=== PATIENT | male | born 1980 | race Caucasian/White ===

== ENCOUNTER 2018-07-30 12:43 | Inpatient (IN) | payer OTHER ==
[2018-07-30 13:34] VITALS: BMI 24.4
--- NOTE | 2018-07-30 14:59 | HP ---
COWS - Scale Sweatin= Chills/Flushing Restless Observation: 1= Difficult to Sit Still Bone or Joint Aches: 0= None Runny Nose/ Eye Tearin= None GI Upset > 30mins: 0= None Tremor Observation: 4= Gross Tremor/Twitching Yawning Observation: 0= None Anxiety or Irritability: 1=Feels Anxious/Irritable Goose Flesh Skin: 3=Piloerection CIWA Score - CIWA Score Nausea/Vomitin-Mild Nausea/No Vomiting Muscle Tremors: 1-None Visible, but [place] Admission ROS BHS - HPI Chief Complaint: pt here requesting detox from etoh use , reports 1 pint/day& 6 beers/day , reports tremors if not drinking, gets agitated and upset , use x 3 yrs , denies seizures, + blackouts most recently 3 mo ago , denies falls , latest use today 2 a.m. prior detox 6 mo ago . heroin use : 2-3 bags ivdu in [place] , needles from exchange , denies sharing , + re-using cocaine : 1/2 bag daily ivdu in [facility] > 1 yr , 80 mg q d benzo : xanax 1-2 /week not regular use utox + cheryle, fen , + opi, + oxy , + bzo, + mtd , forest 0.000 tobacco : 1/2 ppd requesting nrt w/ gum pmhx :hep C dx 2 years ago , no tx RF = ivdu pshx : denies psych meds : ZOloft , buspar, gabapentin did not bring meds , reports latest taken yesterday Allergies/Adverse Reactions: Allergies Allergy/AdvReac Type Severity Reaction Status Date / Time No Known Allergies Allergy Verified 07/30/18 14:06 - Ebola screening Have you traveled outside of the country in the last 21 days: No Have you had contact with anyone from an Ebola affected area: No Have you been sick,other than usual withdrawal symptoms: No Do you have a fever: No - Review of Systems Constitutional: See HPI, Chills, Night Sweats EENT: reports: See HPI Respiratory: reports: See HPI Cardiac: reports: See HPI GI: reports: Nausea : reports: No Symptoms Reported Musculoskeletal: reports: See HPI Integumentary: reports: See HPI, Other (tristian UE rash x many years ( 10)) Neuro: reports: See HPI, Unsteady Gait, Other (drowsy) Endocrine: reports: No Symptoms Reported Hematology: reports: No Symptoms Reported Psychiatric: reports: No Sypmtoms Reported, Judgement Intact, Orientated x3, other (bipolar d/o, depression, ptsd) Other Systems: Reviewed and Negative Patient History - Patient Medical History Hx Anemia: No Hx Asthma: No Hx Chronic Obstructive Pulmonary Disease (COPD): No Hx Cancer: No Hx Cardiac Disorders: No Hx Congestive Heart Failure: No Hx Hypertension: No Hx Hypercholesterolemia: No Hx Pacemaker: No HX Cerebrovascular Accident: No Hx Seizures: No Hx Dementia: No Hx Diabetes: No Hx Gastrointestinal Disorders: No Hx Liver Disease: Yes (Hep C) Hx Genitourinary Disorders: No Hx Sexually Transmitted Disorders: No Hx Renal Disease (ESRD): No Hx Thyroid Disease: No Hx Human Immunodeficiency Virus (HIV): No (Negative 2016) Hx Hepatitis C: Yes (Not on medication) Hx Depression: Yes Hx Suicide Attempt: Yes (hanged self with a shoelace in 2001) Hx Bipolar Disorder: Yes Hx Schizophrenia: No - Patient Surgical History Past Surgical History: No Hx Neurologic Surgery: No Hx Cataract Extraction: No Hx Cardiac Surgery: No Hx Lung Surgery: No Hx Breast Surgery: No Hx Breast Biopsy: No Hx Abdominal Surgery: No Hx Appendectomy: No Hx Cholecystectomy: No Hx Genitourinary Surgery: No Hx Section: No Hx Orthopedic Surgery: No Anesthesia Reaction: No - PPD History Previous Implant?: Yes Documented Results: Negative w/proof Implanted On Prior R Admission?: Yes Date: 01/23/18 Results: 0 mm - Smoking Cessation Smoking history: Current every day smoker Have you smoked in the past 12 months: Yes Aproximately how many cigarettes per day: 20 Cigars Per Day: 0 Hx Chewing Tobacco Use: No Initiated information on smoking cessation: No - Substances Abused Cocaine Route: Injection Frequency: Daily Amount used: $100-150 Age of first use: 17 Date of Last Use: 07/29/18 Heroin Route: Injection Frequency: Daily Amount used: 3-4 bags Age of first use: 20 Date of Last Use: 07/29/18 Alcohol-vodka/beer Route: Oral Frequency: Daily Amount used: 1 pt./3-6 pks. Age of first use: 19 Date of Last Use: 07/29/18 Family Disease History - Family Disease History Family History: Denies Admission Physical Exam [facility] - Vital Signs Vital Signs: Vital Signs - 24 hr 07/30/18 13:32 Temperature 97.5 F L Pulse Rate 67 Respiratory 18 Rate Blood Pressure 119/69 - Physical General Appearance: Yes: Within Normal Limits, Nourished, Appropriately Dressed , Moderate Distress HEENTM: Yes: Within Normal Limits, EOMI, Hearing grossly Normal, Normocephalic, Normal Voice, SHANNAN (pupils small for light), Pharynx Normal, Tm's normal Respiratory: Yes: Within Normal Limits, Chest Non-Tender, Lungs Clear, Normal Breath Sounds, No Respiratory Distress, No Accessory Muscle Use Neck: Yes: Within Normal Limits, No masses,lesions,Nodules, Trachea in good position Cardiology: Yes: Within Normal Limits, Regular Rhythm, Regular Rate, Systolic Murmur Abdominal: Yes: Within Normal Limits, Normal Bowel Sounds, Non Tender, Flat, Soft Genitourinary: Yes: Within Normal Limits Back: Yes: Within Normal Limits, Normal Inspection Musculoskeletal: Yes: Within Normal Limits, full range of Motion, Gait Steady, Pelvis Stable Extremities: Yes: Within Normal Limits, Normal Capillary Refill, Normal Inspection, Normal Range of Motion, Non-Tender Neurological: Yes: Within Normal Limits, Alert, Motor Strength 5/5, Normal Mood/ Affect, Normal Response, Other (drowsy, falls asleep frequently during interview , easily awakened) Integumentary: Yes: Erythema, Rash Cleared for Admission [facility] - Detox or Rehab Detox Regimen/Protocol: Librium [facility] Breath Alcohol Content Breath Alcohol Content: 0 Urine Drug Screen - Results Drug Screen Negative: No Urine Drug Screen Results: CHERYLE-Cocaine, OPI-Opiates, BAR-Barbiturates, BZO- Benzodiazepines, MTD-Methadone, OXY-Oxycodone, FEN-Fentanyl
[2018-07-30] MEDS ORDERED: IBUPROFEN 400 MG TABLET (FP) PO PRN (15:08)
[2018-07-30] MEDS ORDERED: ACETAMINOPHEN 325 MG TABLET (FP) PO PRN (15:08)
[2018-07-30] MEDS ORDERED: MAGNESIUM CITRATE 300 ML BOTTLE PO PRN (15:08)
[2018-07-30] MEDS ORDERED: MAG HYDROX/AL HYDROX/SIMETH 30 ML UNIT-DOSE CUP PO PRN (15:08)
[2018-07-30] MEDS ORDERED: MAGNESIUM HYDROX 2400MG/30ML ORAL SUSPENSION 30 ML CUP PO PRN (15:08)
[2018-07-30] MEDS ORDERED: COLLOIDAL OATMEAL 1 BAR EACH TP PRN (15:12)
[2018-07-30] MEDS: chlordiazePOXIDE HCL 25 MG CAPSULE PO SCH ×2 (17:34→22:14)
[2018-07-30] MEDS: NICOTINE POLACRILEX 2 MG GUM BUC PRN (17:36)
[2018-07-30] MEDS: VITAMINS A AND D TOPICAL OINTMENT 60 GM TUBE TP SCH ×2 (18:32→23:25)
[2018-07-30] MEDS ORDERED: MELATONIN 5 MG TABLETS PO PRN (22:00)
[2018-07-30] MEDS: BACITRACIN 0.9 GM PACKET TP SCH (22:13)
[2018-07-30] MEDS: THIAMINE HCL 100 MG TABLET (FP) PO SCH (22:13)
[2018-07-31 02:54] LABS: URINE APPEARANCE TURBID; URINE BILIRUBIN NEGATIVE (<2.0 mg/dL); URINE COLOR YELLOW; URINE GLUCOSE (UA) NEGATIVE (NEGATIVE); URINE KETONE NEGATIVE (NEGATIVE); URINE LEUK ESTERASE TRACE (NEGATIVE); URINE NITRITE NEGATIVE (NEGATIVE); URINE PROTEIN NEGATIVE (NEGATIVE); URINE UROBILINOGEN 4.0 E.U/dl mg/dL (0.2-1.0)
[2018-07-31 03:13] LABS: CALCIUM OXALATE CRYSTALS FEW /hpf (NONE SEEN); URINE BACTERIA MODERATE /hpf (NONE SEEN); URINE MUCUS RARE
[2018-07-31] MEDS: METHADONE HCL 40 MG DISPERSABLE TABLET PO SCH (05:49)
[2018-07-31] MEDS: chlordiazePOXIDE HCL 25 MG CAPSULE PO SCH ×4 (05:49→22:19)
[2018-07-31] MEDS: BACITRACIN 0.9 GM PACKET TP SCH ×3 (05:50→22:19)
[2018-07-31] MEDS: VITAMINS A AND D TOPICAL OINTMENT 60 GM TUBE TP SCH ×3 (05:50→17:54)
[2018-07-31] MEDS ORDERED: METHADONE HCL 10 MG TABLET PO SCH (06:00)
[2018-07-31] MEDS: NICOTINE POLACRILEX 2 MG GUM BUC PRN ×5 (06:48→22:23)
[2018-07-31 10:18] LABS: HEMATOCRIT 40.8 % (35.4-49); HEMOGLOBIN 13.1 GM/dL (11.7-16.9); MCH 26.3 pg (25.7-33.7); MCHC 32.2 g/dl (32.0-35.9); MEAN CELL VOLUME 81.7 fl (80-96); MEAN PLT VOLUME 8.5 fl (7.5-11.1); PLATELET COUNT 207 K/MM3 (134-434); RDW 16.3 % (11.9-15.9); WHITE BLOOD COUNT 4.5 K/mm3 (4.0-10.0)
[2018-07-31] MEDS: PRENATAL VITAMINS W/ FOLIC ACID TABLET (FP) PO SCH (10:19)
--- NOTE | 2018-07-31 10:42 | PN ---
S CIWA - CIWA Score Nausea/Vomitin-No Nausea/No Vomiting Muscle Tremors: 4-Moderate,w/Arms Extend Anxiety: 4-Mod. Anxious/Guarded Agitation: 4-Moderately Restless Paroxysmal Sweats: 1-Minimal Palms Moist Orientation: 0-Oriented Tacttile Disturbances: 3-Moderate Itch/Numb/Burn Auditory Disturbances: 0-None Visual Disturbances: 0-None Headache: 0-None Present CIWA-Ar Total Score: 16 BHS Progress Note (SOAP) Subjective: ANXIETY,SWEATS,ITCHY SKIN-CHRONIC SKIN RASH. Objective: 07/31/18 10:38 Vital Signs 07/31/18 07/31/18 07/31/18 03:30 06:54 09:21 Temperature 97.5 F L 96.4 F L Pulse Rate 60 68 Respiratory 18 18 16 Rate Blood Pressure 105/62 98/67 Laboratory Tests 07/30/18 07/31/18 16:53 07:00 WBC 4.5 RBC 5.00 Hgb 13.1 Hct 40.8 MCV 81.7 MCH 26.3 MCHC 32.2 RDW 16.3 H Plt Count 207 MPV 8.5 D Urine Color Yellow Urine Appearance Turbid Urine pH 5.0 Ur Specific [place] 1.021 Urine Protein Negative Urine Glucose (UA) Negative Urine Ketones Negative Urine Blood Negative Urine Nitrite Negative Urine Bilirubin Negative Urine Urobilinogen 4.0 e.u/dl Ur Leukocyte Esterase Trace Urine WBC (Auto) 21 Urine RBC (Auto) None Calcium Oxalate Crystal Few Urine Bacteria Moderate Urine Mucus Rare UA NOTED Assessment: 07/31/18 10:38 WITHDRAWAL SX Plan: CONTINUE DETOX BENADRYL 25 MG PO TID FOR ITCHY SKIN DUE TO RASH. AVEENO SOAP DIRECTED.
[2018-07-31 11:09] LABS: ALBUMIN 3.4 g/dl (3.4-5.0); ALK PHOS 143 U/L (45-117); ANION GAP 6 MMOL/L (8-16); BILIRUBIN,TOTAL 0.4 mg/dL (0.2-1); BLOOD UREA NITROGEN 10 mg/dL (7-18); CALCIUM 8.9 mg/dL (8.5-10.1); CHLORIDE 104 mmol/L (98-107); CO2 32 mmol/L (21-32); CREATININE 0.9 mg/dL (0.55-1.3); GLUCOSE,RANDOM 72 mg/dL (74-106); POTASSIUM 4.5 mmol/L (3.5-5.1); SGOT/AST 48 U/L (15-37); SGPT/ALT 38 U/L (13-61); SODIUM 142 mmol/L (136-145); TOT PROT 8.1 g/dl (6.4-8.2)
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
--- NOTE | 2018-07-31 12:59 | EKG ---
Test Reason : Blood Pressure : / mmHG Vent. Rate : 054 BPM Atrial Rate : 054 BPM P-R Int : 150 ms QRS Dur : 096 ms QT Int : 462 ms P-R-T Axes : 020 048 034 degrees QTc Int : 438 ms POOR DATA QUALITY, INTERPRETATION MAY BE ADVERSELY AFFECTED SINUS BRADYCARDIA WITH OCCASIONAL PREMATURE VENTRICULAR COMPLEXES MINIMAL VOLTAGE CRITERIA FOR LVH, MAY BE NORMAL VARIANT EARLY REPOLARIZATION BORDERLINE ECG WHEN COMPARED WITH ECG OF 21-JAN-2018 21:15, PREMATURE VENTRICULAR COMPLEXES ARE NOW PRESENT Confirmed by ZAIDA COOPER, LD ([id number]) on 07/31/2018 12:58:51 PM Referred By: Confirmed By:LD CERDA MD
[2018-07-31] MEDS: TRIAMCINOLONE ACET 0.025% OINTMENT 15 GM TUBE TP SCH ×3 (13:02→22:19)
[2018-07-31] MEDS: diphenhydrAMINE HCL 25 MG CAPSULE (FP) PO SCH ×2 (13:02→22:19)
[2018-07-31] MEDS: busPIRone HCL 10 MG TABLET (FP) PO SCH ×2 (13:02→22:19)
[2018-07-31] MEDS: SERTRALINE HCL 50 MG TABLET (FP) PO SCH (13:03)
[2018-07-31] MEDS: GABAPENTIN 300 MG CAPSULE (FP) PO SCH ×2 (13:03→22:19)
[2018-07-31] MEDS: THIAMINE HCL 100 MG TABLET (FP) PO SCH (22:20)
[2018-07-31] MEDS: ZOLPIDEM TARTRATE 5 MG TABLET PO PRN (22:22)
[2018-08-01] MEDS: VITAMINS A AND D TOPICAL OINTMENT 60 GM TUBE TP SCH ×4 (00:30→18:09)
[2018-08-01] MEDS: chlordiazePOXIDE HCL 25 MG CAPSULE PO SCH ×2 (05:37→10:08)
[2018-08-01] MEDS: diphenhydrAMINE HCL 25 MG CAPSULE (FP) PO SCH ×3 (05:37→22:15)
[2018-08-01] MEDS: GABAPENTIN 300 MG CAPSULE (FP) PO SCH ×3 (05:37→22:15)
[2018-08-01] MEDS: NICOTINE POLACRILEX 2 MG GUM BUC PRN ×4 (05:37→17:57)
[2018-08-01] MEDS: busPIRone HCL 10 MG TABLET (FP) PO SCH ×3 (05:37→22:15)
[2018-08-01] MEDS: METHADONE HCL 40 MG DISPERSABLE TABLET PO SCH (05:37)
[2018-08-01] MEDS: BACITRACIN 0.9 GM PACKET TP SCH ×3 (06:26→22:14)
[2018-08-01] MEDS: TRIAMCINOLONE ACET 0.025% OINTMENT 15 GM TUBE TP SCH ×4 (10:07→22:14)
[2018-08-01] MEDS: SERTRALINE HCL 50 MG TABLET (FP) PO SCH (10:08)
[2018-08-01] MEDS: PRENATAL VITAMINS W/ FOLIC ACID TABLET (FP) PO SCH (10:09)
--- NOTE | 2018-08-01 10:17 | PN ---
[facility] CIWA - CIWA Score Nausea/Vomitin-No Nausea/No Vomiting Muscle Tremors: 3 Anxiety: 4-Mod. Anxious/Guarded Agitation: 3 Paroxysmal Sweats: 1-Minimal Palms Moist Orientation: 0-Oriented Tacttile Disturbances: 0-None Auditory Disturbances: 0-None Visual Disturbances: 0-None Headache: 0-None Present CIWA-Ar Total Score: 11 BHS Progress Note (SOAP) Subjective: ANXIETY,SWEATS,MUSCLE ACHES,FATIGUE. Objective: 08/01/18 10:16 Vital Signs 08/01/18 08/01/18 08/01/18 03:30 06:14 09:47 Temperature 97.6 F 97.6 F Pulse Rate 62 68 Respiratory 18 18 20 Rate Blood Pressure 102/54 120/70 Laboratory Tests 07/30/18 07/31/18 07/31/18 16:53 07:00 07:00 WBC 4.5 RBC 5.00 Hgb 13.1 Hct 40.8 MCV 81.7 MCH 26.3 MCHC 32.2 RDW 16.3 H Plt Count 207 MPV 8.5 D Sodium Potassium Chloride Carbon Dioxide Anion Gap BUN Creatinine Creat Clearance w eGFR Random Glucose Calcium Total Bilirubin AST ALT Alkaline Phosphatase Total Protein Albumin Urine Color Yellow Urine Appearance Turbid Urine pH 5.0 Ur Specific [place] 1.021 Urine Protein Negative Urine Glucose (UA) Negative Urine Ketones Negative Urine Blood Negative Urine Nitrite Negative Urine Bilirubin Negative Urine Urobilinogen 4.0 e.u/dl Ur Leukocyte Esterase Trace Urine WBC (Auto) 21 Urine RBC (Auto) None Calcium Oxalate Crystal Few Urine Bacteria Moderate Urine Mucus Rare HIV 1&2 Antibody Screen Negative HIV P24 Antigen Negative 07/31/18 07:00 WBC RBC Hgb Hct MCV MCH MCHC RDW Plt Count MPV Sodium 142 Potassium 4.5 Chloride 104 Carbon Dioxide 32 Anion Gap 6 L BUN 10 Creatinine 0.9 Creat Clearance w eGFR > 60 Random Glucose 72 L Calcium 8.9 Total Bilirubin 0.4 AST 48 H ALT 38 Alkaline Phosphatase 143 H Total Protein 8.1 Albumin 3.4 Urine Color Urine Appearance Urine pH Ur Specific [place] Urine Protein Urine Glucose (UA) Urine Ketones Urine Blood Urine Nitrite Urine Bilirubin Urine Urobilinogen Ur Leukocyte Esterase Urine WBC (Auto) Urine RBC (Auto) Calcium Oxalate Crystal Urine Bacteria Urine Mucus HIV 1&2 Antibody Screen HIV P24 Antigen Assessment: 08/01/18 10:16 WITHDRAWAL SX Plan: CONTINUE DETOX MOTRIN PRN
[2018-08-01] MEDS: chlordiazePOXIDE 5 MG CAPSULE PO SCH ×2 (17:55→22:15)
[2018-08-01] MEDS: hydrOXYzine PAMOATE 25 MG CAPSULE (FP) PO PRN (17:56)
[2018-08-01] MEDS: THIAMINE HCL 100 MG TABLET (FP) PO SCH (22:15)
[2018-08-01] MEDS: ZOLPIDEM TARTRATE 5 MG TABLET PO PRN (22:17)
[2018-08-02] MEDS: VITAMINS A AND D TOPICAL OINTMENT 60 GM TUBE TP SCH ×3 (00:49→13:29)
[2018-08-02] MEDS: METHADONE HCL 40 MG DISPERSABLE TABLET PO SCH (05:40)
[2018-08-02] MEDS: busPIRone HCL 10 MG TABLET (FP) PO SCH ×2 (05:41→13:28)
[2018-08-02] MEDS: diphenhydrAMINE HCL 25 MG CAPSULE (FP) PO SCH ×2 (05:41→13:29)
[2018-08-02] MEDS: GABAPENTIN 300 MG CAPSULE (FP) PO SCH ×2 (05:41→13:28)
[2018-08-02] MEDS: chlordiazePOXIDE 5 MG CAPSULE PO SCH ×2 (05:41→10:40)
[2018-08-02] MEDS: BACITRACIN 0.9 GM PACKET TP SCH ×2 (05:44→13:28)
[2018-08-02] MEDS: NICOTINE POLACRILEX 2 MG GUM BUC PRN ×2 (06:23→15:38)
[2018-08-02] MEDS: TRIAMCINOLONE ACET 0.025% OINTMENT 15 GM TUBE TP SCH ×2 (10:40→13:30)
[2018-08-02] MEDS: SERTRALINE HCL 50 MG TABLET (FP) PO SCH (10:40)
[2018-08-02] MEDS: PRENATAL VITAMINS W/ FOLIC ACID TABLET (FP) PO SCH (10:41)
[2018-08-02] MEDS: hydrOXYzine PAMOATE 25 MG CAPSULE (FP) PO PRN (13:28)
--- NOTE | 2018-08-02 14:07 | PN ---
BHS Progress Note (SOAP) Subjective: ANXIETY,MUSCLE ACHES,SWEATS. Objective: 08/02/18 14:07 Vital Signs 08/02/18 08/02/18 06:20 10:20 Temperature 98 F 97.7 F Pulse Rate 66 76 Respiratory 18 18 Rate Blood Pressure 99/60 97/59 L Assessment: 08/02/18 14:07 WITHDRAWAL SX Plan: CONTINUE DETOX
--- NOTE | 2018-08-02 15:59 | PN ---
S Progress Note Note: PT STATES SHE'S READY TO GO INTO REHAB TODAY. ALERT O X 3. MEDICALLY STABLE.
--- NOTE | 2018-08-02 16:01 | DS ---
[facility] Detox Discharge Summary Admission Date: 07/30/18 Discharge Date: 08/02/18 - History Present History: Alcohol Dependence, Cocaine Dependence Additional Comments: DETOX COMPLETED. ALERT O X 3. NAD. - Physical Exam Results Vital Signs: Vital Signs Temperature 97.7 F 08/02/18 14:19 Pulse Rate 88 08/02/18 14:19 Respiratory Rate 20 08/02/18 14:19 Blood Pressure 112/69 08/02/18 14:19 O2 Sat by Pulse Oximetry (%) Pertinent Admission Physical Exam Findings: WITHDRAWAL SX Laboratory Tests 07/30/18 07/31/18 07/31/18 16:53 07:00 07:00 WBC 4.5 RBC 5.00 Hgb 13.1 Hct 40.8 MCV 81.7 MCH 26.3 MCHC 32.2 RDW 16.3 H Plt Count 207 MPV 8.5 D Sodium Potassium Chloride Carbon Dioxide Anion Gap BUN Creatinine Creat Clearance w eGFR Random Glucose Calcium Total Bilirubin AST ALT Alkaline Phosphatase Total Protein Albumin Urine Color Yellow Urine Appearance Turbid Urine pH 5.0 Ur Specific [place] 1.021 Urine Protein Negative Urine Glucose (UA) Negative Urine Ketones Negative Urine Blood Negative Urine Nitrite Negative Urine Bilirubin Negative Urine Urobilinogen 4.0 e.u/dl Ur Leukocyte Esterase Trace Urine WBC (Auto) 21 Urine RBC (Auto) None Calcium Oxalate Crystal Few Urine Bacteria Moderate Urine Mucus Rare RPR Titer HIV 1&2 Antibody Screen Negative HIV P24 Antigen Negative 07/31/18 07/31/18 07:00 07:00 WBC RBC Hgb Hct MCV MCH MCHC RDW Plt Count MPV Sodium 142 Potassium 4.5 Chloride 104 Carbon Dioxide 32 Anion Gap 6 L BUN 10 Creatinine 0.9 Creat Clearance w eGFR > 60 Random Glucose 72 L Calcium 8.9 Total Bilirubin 0.4 AST 48 H ALT 38 Alkaline Phosphatase 143 H Total Protein 8.1 Albumin 3.4 Urine Color Urine Appearance Urine pH Ur Specific [place] Urine Protein Urine Glucose (UA) Urine Ketones Urine Blood Urine Nitrite Urine Bilirubin Urine Urobilinogen Ur Leukocyte Esterase Urine WBC (Auto) Urine RBC (Auto) Calcium Oxalate Crystal Urine Bacteria Urine Mucus RPR Titer Nonreactive HIV 1&2 Antibody Screen HIV P24 Antigen - Treatment Hospital Course: Detox Protocol Followed, Detoxed Safely, Responded well, Discharged Condition Good, Rehab Referral Accepted Patient has Accepted a Rehab Referral to: [facility] - Medication Discharge Medications: Ambulatory Orders Sertraline HCl [Zoloft -] 50 mg PO DAILY 01/19/16 Buspirone HCl [Buspar -] 10 mg PO TID 01/21/18 Diphenhydramine HCl [Benadryl Capsule -] 25 mg PO Q6H PRN #10 capsule 01/25/18 Gabapentin [Neurontin -] 300 mg PO TID #90 cap 01/25/18 Vitamin A & D Top Oint - 1 applic TP Q6HPO #1 tube 01/25/18 Bacitracin - [Bacitracin Topical Ointment -] 1 applic TP TID 07/30/18 Triamcinolone 0.5% Ointment [Kenalog] 0 gm TP BID 07/30/18 - Diagnosis (1) Alcohol dependence with uncomplicated withdrawal Current Visit: Yes Status: Acute (2) Cocaine dependence Current Visit: Yes Status: Acute (3) Hepatitis C Current Visit: Yes Status: Chronic Qualifiers: Viral hepatitis chronicity: chronic (4) Asthma Current Visit: Yes Status: Chronic Qualifiers: Asthma severity: mild persistent Asthma complication type: uncomplicated (5) Eczema Current Visit: Yes Status: Chronic Qualifiers: Eczema type: intrinsic Qualified Code(s): L20.84 - Intrinsic (allergic) eczema (6) Hep C w/o coma, chronic Current Visit: Yes Status: Chronic (7) History of seizure Current Visit: Yes Status: Suspected (8) Methadone maintenance therapy patient Current Visit: Yes Status: Chronic - AMA Did Patient Leave Against Medical Advice: No
[2018-08-02] MEDS ORDERED: chlordiazePOXIDE HCL 10 MG CAPSULE PO SCH (17:00)
[2018-08-02 17:39] VITALS: BP 111/56; PULSE 76; TEMP 98.1
== END 2018-08-02 18:33 | disposition other institution (70) | DRG 773 ==
LOC: YASAS 12:43 → Y3N 15:24
PROC: HZ2ZZZZ Detoxification Services for Substance Abuse Treatment (ICD-10-PCS; principal; 2018-07-30)
DX: F10.230 Alcohol dependence with withdrawal, uncomplicated (principal); F14.20 Cocaine dependence, uncomplicated; F11.20 Opioid dependence, uncomplicated; F19.24 Other psychoactive substance dependence with psychoactive substance-induced mood disorder; F31.9 Bipolar disorder, unspecified; F43.10 Post-traumatic stress disorder, unspecified; B18.2 Chronic viral hepatitis C; L20.84 Intrinsic (allergic) eczema; Z86.69 Personal history of other diseases of the nervous system and sense organs; Z91.5 Personal history of self-harm
CPT/HCPCS: 36415; 80053; 81003; 81015; 85027; 86593; 87389; 93005; 93010

== ENCOUNTER 2018-08-02 20:03 | Inpatient (IN) | payer OTHER ==
[2018-08-02] MEDS ORDERED: MAGNESIUM CITRATE 300 ML BOTTLE PO PRN (20:45)
[2018-08-02] MEDS ORDERED: guaiFENesin/D-METHORPHAN HB 10 ML UNIT-DOSE CUPS PO PRN (20:45)
[2018-08-02] MEDS ORDERED: MAGNESIUM HYDROX 2400MG/30ML ORAL SUSPENSION 30 ML CUP PO PRN (20:45)
[2018-08-02] MEDS ORDERED: MENTHOL/PHENOL 1 EACH UD MM PRN (20:45)
[2018-08-02] MEDS ORDERED: P-EPHED 60MG/TRIPROLIDI 2.5MG TABLET PO PRN (20:45)
[2018-08-02] MEDS ORDERED: ACETAMINOPHEN 325 MG TABLET (FP) PO PRN (20:45)
[2018-08-02] MEDS ORDERED: LOPERAMIDE HCL 2 MG CAPSULE PO PRN (20:45)
[2018-08-02] MEDS ORDERED: MAG HYDROX/AL HYDROX/SIMETH 30 ML UNIT-DOSE CUP PO PRN (20:45)
--- NOTE | 2018-08-02 20:52 | PN ---
CHANDAN Progress Note Note: Psychiatric nurse practitioner production pattern maker note: Chart reviewed. Patient transferred to rehab. Dr. Byrne note read and appreciated. Will continue medications that were prescribed in detox: Zoloft 50mg daily + Buspar 10mg TID.
--- NOTE | 2018-08-02 21:01 | HP ---
CHANDAN COOPER Rehab Assess/Revision - Admission History Ad[facility] Date of Admission to Rehab: 08/02/18 - Vital signs Vital Signs: Vital Signs Period Temp Pulse Resp BP Sys/Cordero Pulse Ox Last 24 Hr 97.9 F 80 20 118/71 - Findings Detox History & Physical reviewed: Yes Concur with findings: Yes Comments/Additional Findings: ADMIT TO REHAB
--- NOTE | 2018-08-02 21:02 | HP ---
CHANDAN COOPER Rehab Assess/Revision - Admission History Admitted to Rehab from: [facility] [place] - Vital signs Vital Signs: Vital Signs Period Temp Pulse Resp BP Sys/Cordero Pulse Ox Last 24 Hr 97.9 F 80 20 118/71 - Findings Detox History & Physical reviewed: Yes Concur with findings: Yes Comments/Additional Findings: ADMIT TO REHAB Inpatient Rehab Admission - Initial Determination Are CD services needed?: Yes Free of communicable disease: Yes Not in need of hospitalization: Yes - Rehab Admission Criteria Previous failed treatment: Yes Poor recovery environment: Yes Comorbidities: Yes Lacks judgement: Yes Patient is meeting Inpatient Rehab admission criteria:: Yes
[2018-08-02] MEDS: THIAMINE HCL 100 MG TABLET (FP) PO SCH (22:02)
[2018-08-02] MEDS: BACITRACIN 0.9 GM PACKET TP SCH (22:02)
[2018-08-02] MEDS: busPIRone HCL 10 MG TABLET (FP) PO SCH (22:04)
[2018-08-02] MEDS: GABAPENTIN 300 MG CAPSULE (FP) PO SCH (22:04)
[2018-08-02] MEDS: diphenhydrAMINE HCL 25 MG CAPSULE (FP) PO PRN (22:04)
[2018-08-02] MEDS: TRIAMCINOLONE ACET 0.5% OINT 15 GM TUBE TP SCH (22:05)
[2018-08-03] MEDS: VITAMINS A AND D TOPICAL OINTMENT 60 GM TUBE TP SCH ×4 (00:31→19:29)
[2018-08-03] MEDS: IBUPROFEN 400 MG TABLET (FP) PO PRN ×2 (06:06→22:06)
[2018-08-03] MEDS: busPIRone HCL 10 MG TABLET (FP) PO SCH ×3 (06:06→22:04)
[2018-08-03] MEDS: GABAPENTIN 300 MG CAPSULE (FP) PO SCH ×3 (06:06→22:04)
[2018-08-03] MEDS: BACITRACIN 0.9 GM PACKET TP SCH ×3 (06:06→22:04)
[2018-08-03] MEDS: hydrOXYzine PAMOATE 50 MG CAPSULE (FP) PO PRN ×3 (06:08→22:06)
[2018-08-03] MEDS: METHADONE HCL 40 MG DISPERSABLE TABLET PO SCH (06:09)
[2018-08-03] MEDS: TRIAMCINOLONE ACET 0.5% OINT 15 GM TUBE TP SCH ×2 (10:40→22:04)
[2018-08-03] MEDS: NICOTINE 14 MG/24 HOURS TOPICAL PATCH TD SCH (10:40)
[2018-08-03] MEDS: PRENATAL VITAMINS W/ FOLIC ACID TABLET (FP) PO SCH (10:40)
[2018-08-03] MEDS: SERTRALINE HCL 50 MG TABLET (FP) PO SCH (10:40)
[2018-08-03] MEDS: NICOTINE POLACRILEX 2 MG GUM BUC PRN ×3 (10:42→22:07)
[2018-08-03] MEDS: THIAMINE HCL 100 MG TABLET (FP) PO SCH (22:04)
[2018-08-04] MEDS: VITAMINS A AND D TOPICAL OINTMENT 60 GM TUBE TP SCH ×4 (00:14→17:53)
[2018-08-04] MEDS: METHADONE HCL 40 MG DISPERSABLE TABLET PO SCH (06:40)
[2018-08-04] MEDS: GABAPENTIN 300 MG CAPSULE (FP) PO SCH ×3 (06:41→22:15)
[2018-08-04] MEDS: busPIRone HCL 10 MG TABLET (FP) PO SCH ×3 (06:41→22:16)
[2018-08-04] MEDS: BACITRACIN 0.9 GM PACKET TP SCH ×3 (06:41→22:16)
[2018-08-04] MEDS: hydrOXYzine PAMOATE 50 MG CAPSULE (FP) PO PRN ×4 (06:43→22:19)
[2018-08-04] MEDS: NICOTINE POLACRILEX 2 MG GUM BUC PRN ×3 (06:44→22:19)
[2018-08-04] MEDS: PRENATAL VITAMINS W/ FOLIC ACID TABLET (FP) PO SCH (10:51)
[2018-08-04] MEDS: NICOTINE 14 MG/24 HOURS TOPICAL PATCH TD SCH (10:51)
[2018-08-04] MEDS: SERTRALINE HCL 50 MG TABLET (FP) PO SCH (10:51)
[2018-08-04] MEDS: IBUPROFEN 400 MG TABLET (FP) PO PRN (10:51)
[2018-08-04] MEDS: TRIAMCINOLONE ACET 0.5% OINT 15 GM TUBE TP SCH ×2 (11:02→22:17)
[2018-08-04] MEDS: THIAMINE HCL 100 MG TABLET (FP) PO SCH (22:16)
[2018-08-05] MEDS: VITAMINS A AND D TOPICAL OINTMENT 60 GM TUBE TP SCH ×4 (00:03→17:20)
[2018-08-05] MEDS: busPIRone HCL 10 MG TABLET (FP) PO SCH ×3 (06:16→21:55)
[2018-08-05] MEDS: GABAPENTIN 300 MG CAPSULE (FP) PO SCH ×3 (06:17→21:55)
[2018-08-05] MEDS: METHADONE HCL 40 MG DISPERSABLE TABLET PO SCH (06:17)
[2018-08-05] MEDS: hydrOXYzine PAMOATE 50 MG CAPSULE (FP) PO PRN ×3 (06:20→21:56)
[2018-08-05] MEDS: IBUPROFEN 400 MG TABLET (FP) PO PRN ×2 (06:20→14:40)
[2018-08-05] MEDS: BACITRACIN 0.9 GM PACKET TP SCH ×3 (06:21→21:55)
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
[2018-08-05] MEDS: NICOTINE 14 MG/24 HOURS TOPICAL PATCH TD SCH (11:46)
[2018-08-05] MEDS: PRENATAL VITAMINS W/ FOLIC ACID TABLET (FP) PO SCH (11:46)
[2018-08-05] MEDS: SERTRALINE HCL 50 MG TABLET (FP) PO SCH (11:46)
[2018-08-05] MEDS: NICOTINE POLACRILEX 2 MG GUM BUC PRN ×3 (11:47→21:57)
[2018-08-05] MEDS: diphenhydrAMINE HCL 25 MG CAPSULE (FP) PO PRN (11:48)
[2018-08-05] MEDS: TRIAMCINOLONE ACET 0.5% OINT 15 GM TUBE TP SCH ×2 (11:49→21:58)
[2018-08-05] MEDS: MELATONIN 5 MG TABLETS PO PRN (21:55)
[2018-08-05] MEDS: THIAMINE HCL 100 MG TABLET (FP) PO SCH (21:55)
[2018-08-05] MEDS: QUEtiapine FUMARATE 50 MG TABLET PO SCH (21:55)
[2018-08-06] MEDS: VITAMINS A AND D TOPICAL OINTMENT 60 GM TUBE TP SCH ×4 (01:09→17:17)
[2018-08-06] MEDS: busPIRone HCL 10 MG TABLET (FP) PO SCH ×3 (06:19→21:46)
[2018-08-06] MEDS: hydrOXYzine PAMOATE 50 MG CAPSULE (FP) PO PRN ×3 (06:19→17:16)
[2018-08-06] MEDS: METHADONE HCL 40 MG DISPERSABLE TABLET PO SCH (06:19)
[2018-08-06] MEDS: NICOTINE POLACRILEX 2 MG GUM BUC PRN ×3 (06:19→21:48)
[2018-08-06] MEDS: GABAPENTIN 300 MG CAPSULE (FP) PO SCH ×3 (06:19→21:46)
[2018-08-06] MEDS: BACITRACIN 0.9 GM PACKET TP SCH ×3 (06:42→21:47)
[2018-08-06] MEDS: NICOTINE 14 MG/24 HOURS TOPICAL PATCH TD SCH (11:01)
[2018-08-06] MEDS: PRENATAL VITAMINS W/ FOLIC ACID TABLET (FP) PO SCH (11:01)
[2018-08-06] MEDS: SERTRALINE HCL 50 MG TABLET (FP) PO SCH (11:01)
[2018-08-06] MEDS: TRIAMCINOLONE ACET 0.5% OINT 15 GM TUBE TP SCH ×2 (11:01→21:46)
[2018-08-06] MEDS: IBUPROFEN 400 MG TABLET (FP) PO PRN ×2 (11:02→17:16)
--- NOTE | 2018-08-06 11:56 | PN ---
BHS Progress Note Note: C/O SEVERE PAIN,REDNESS AND SWELLING TO RIGHT FOREARM FOR COUPLE DAYS. PT DENIES ANY TRUAMA TO AREA. RIGHT ARM: REDNESS AND SWELLING WITH PAIN TO TOUCH. IMPRESSION: CELLULITIS/ABSCESS RIGHT FOREARM PLAN: KEFLEX 500 MG PO Q6H X 7 DAYS
[2018-08-06] MEDS: CEPHALEXIN MONOHYDRATE 500 MG CAPSULE (UD) PO SCH ×2 (12:22→17:14)
[2018-08-06] MEDS: THIAMINE HCL 100 MG TABLET (FP) PO SCH (21:46)
[2018-08-06] MEDS: QUEtiapine FUMARATE 50 MG TABLET PO SCH (21:46)
[2018-08-06] MEDS: diphenhydrAMINE HCL 25 MG CAPSULE (FP) PO PRN (21:47)
[2018-08-07] MEDS: CEPHALEXIN MONOHYDRATE 500 MG CAPSULE (UD) PO SCH ×5 (01:00→23:22)
[2018-08-07] MEDS: VITAMINS A AND D TOPICAL OINTMENT 60 GM TUBE TP SCH ×4 (02:39→17:38)
[2018-08-07] MEDS: NICOTINE POLACRILEX 2 MG GUM BUC PRN ×4 (06:38→21:40)
[2018-08-07] MEDS: hydrOXYzine PAMOATE 50 MG CAPSULE (FP) PO PRN ×2 (06:38→11:14)
[2018-08-07] MEDS: busPIRone HCL 10 MG TABLET (FP) PO SCH ×3 (06:38→21:39)
[2018-08-07] MEDS: METHADONE HCL 40 MG DISPERSABLE TABLET PO SCH (06:38)
[2018-08-07] MEDS: BACITRACIN 0.9 GM PACKET TP SCH ×3 (06:41→21:39)
[2018-08-07] MEDS: GABAPENTIN 300 MG CAPSULE (FP) PO SCH ×3 (06:41→21:39)
[2018-08-07] MEDS: PRENATAL VITAMINS W/ FOLIC ACID TABLET (FP) PO SCH (11:11)
[2018-08-07] MEDS: NICOTINE 14 MG/24 HOURS TOPICAL PATCH TD SCH (11:11)
[2018-08-07] MEDS: SERTRALINE HCL 50 MG TABLET (FP) PO SCH (11:11)
[2018-08-07] MEDS: TRIAMCINOLONE ACET 0.5% OINT 15 GM TUBE TP SCH ×2 (11:12→21:39)
[2018-08-07] MEDS: IBUPROFEN 400 MG TABLET (FP) PO PRN (14:15)
[2018-08-07] MEDS: QUEtiapine FUMARATE 50 MG TABLET PO SCH (21:39)
[2018-08-07] MEDS: THIAMINE HCL 100 MG TABLET (FP) PO SCH (21:39)
[2018-08-08] MEDS: CEPHALEXIN MONOHYDRATE 500 MG CAPSULE (UD) PO SCH ×4 (06:05→23:30)
[2018-08-08] MEDS: GABAPENTIN 300 MG CAPSULE (FP) PO SCH ×3 (06:05→21:49)
[2018-08-08] MEDS: busPIRone HCL 10 MG TABLET (FP) PO SCH ×3 (06:06→21:49)
[2018-08-08] MEDS: METHADONE HCL 40 MG DISPERSABLE TABLET PO SCH (06:06)
[2018-08-08] MEDS: NICOTINE POLACRILEX 2 MG GUM BUC PRN ×4 (06:08→21:51)
[2018-08-08] MEDS: hydrOXYzine PAMOATE 50 MG CAPSULE (FP) PO PRN ×3 (06:08→21:50)
[2018-08-08] MEDS: BACITRACIN 0.9 GM PACKET TP SCH ×3 (06:26→22:07)
[2018-08-08] MEDS: VITAMINS A AND D TOPICAL OINTMENT 60 GM TUBE TP SCH ×5 (06:26→23:32)
[2018-08-08] MEDS: SERTRALINE HCL 50 MG TABLET (FP) PO SCH (10:43)
[2018-08-08] MEDS: NICOTINE 14 MG/24 HOURS TOPICAL PATCH TD SCH (10:44)
[2018-08-08] MEDS: PRENATAL VITAMINS W/ FOLIC ACID TABLET (FP) PO SCH (10:44)
[2018-08-08] MEDS: TRIAMCINOLONE ACET 0.5% OINT 15 GM TUBE TP SCH ×2 (11:09→22:07)
[2018-08-08] MEDS: QUEtiapine FUMARATE 50 MG TABLET PO SCH (21:50)
[2018-08-08] MEDS: THIAMINE HCL 100 MG TABLET (FP) PO SCH (21:51)
[2018-08-09] MEDS: BACITRACIN 0.9 GM PACKET TP SCH ×3 (06:30→21:41)
[2018-08-09] MEDS: busPIRone HCL 10 MG TABLET (FP) PO SCH ×3 (06:30→21:41)
[2018-08-09] MEDS: CEPHALEXIN MONOHYDRATE 500 MG CAPSULE (UD) PO SCH ×3 (06:30→17:20)
[2018-08-09] MEDS: VITAMINS A AND D TOPICAL OINTMENT 60 GM TUBE TP SCH ×3 (06:32→17:20)
[2018-08-09] MEDS: hydrOXYzine PAMOATE 50 MG CAPSULE (FP) PO PRN ×2 (06:32→10:37)
[2018-08-09] MEDS: GABAPENTIN 300 MG CAPSULE (FP) PO SCH ×3 (06:32→21:41)
[2018-08-09] MEDS: METHADONE HCL 40 MG DISPERSABLE TABLET PO SCH (06:32)
[2018-08-09] MEDS: NICOTINE POLACRILEX 2 MG GUM BUC PRN ×3 (06:34→21:41)
[2018-08-09] MEDS: NICOTINE 14 MG/24 HOURS TOPICAL PATCH TD SCH (10:34)
[2018-08-09] MEDS: SERTRALINE HCL 50 MG TABLET (FP) PO SCH (10:35)
[2018-08-09] MEDS: IBUPROFEN 400 MG TABLET (FP) PO PRN (10:37)
[2018-08-09] MEDS: TRIAMCINOLONE ACET 0.5% OINT 15 GM TUBE TP SCH ×2 (11:55→21:41)
[2018-08-09] MEDS: PRENATAL VITAMINS W/ FOLIC ACID TABLET (FP) PO SCH (11:55)
[2018-08-09] MEDS: THIAMINE HCL 100 MG TABLET (FP) PO SCH (21:41)
[2018-08-09] MEDS: diphenhydrAMINE HCL 25 MG CAPSULE (FP) PO PRN (21:41)
[2018-08-09] MEDS: QUEtiapine FUMARATE 50 MG TABLET PO SCH (21:41)
[2018-08-10] MEDS: VITAMINS A AND D TOPICAL OINTMENT 60 GM TUBE TP SCH ×4 (00:50→19:39)
[2018-08-10] MEDS: CEPHALEXIN MONOHYDRATE 500 MG CAPSULE (UD) PO SCH ×4 (00:50→18:30)
[2018-08-10] MEDS: busPIRone HCL 10 MG TABLET (FP) PO SCH ×3 (06:13→21:57)
[2018-08-10] MEDS: GABAPENTIN 300 MG CAPSULE (FP) PO SCH ×3 (06:13→21:56)
[2018-08-10] MEDS: METHADONE HCL 40 MG DISPERSABLE TABLET PO SCH (06:13)
[2018-08-10] MEDS: BACITRACIN 0.9 GM PACKET TP SCH ×3 (06:14→22:18)
[2018-08-10] MEDS: hydrOXYzine PAMOATE 50 MG CAPSULE (FP) PO PRN ×2 (06:14→11:01)
[2018-08-10] MEDS: NICOTINE POLACRILEX 2 MG GUM BUC PRN ×3 (06:15→21:58)
[2018-08-10] MEDS: NICOTINE 14 MG/24 HOURS TOPICAL PATCH TD SCH (10:59)
[2018-08-10] MEDS: SERTRALINE HCL 50 MG TABLET (FP) PO SCH (10:59)
[2018-08-10] MEDS: PRENATAL VITAMINS W/ FOLIC ACID TABLET (FP) PO SCH (10:59)
[2018-08-10] MEDS: TRIAMCINOLONE ACET 0.5% OINT 15 GM TUBE TP SCH ×2 (11:00→22:18)
[2018-08-10] MEDS: THIAMINE HCL 100 MG TABLET (FP) PO SCH (21:56)
[2018-08-10] MEDS: QUEtiapine FUMARATE 50 MG TABLET PO SCH (21:57)
[2018-08-11] MEDS: CEPHALEXIN MONOHYDRATE 500 MG CAPSULE (UD) PO SCH ×5 (00:22→23:52)
[2018-08-11] MEDS: VITAMINS A AND D TOPICAL OINTMENT 60 GM TUBE TP SCH ×4 (00:32→17:26)
[2018-08-11] MEDS: METHADONE HCL 40 MG DISPERSABLE TABLET PO SCH (06:17)
[2018-08-11] MEDS: GABAPENTIN 300 MG CAPSULE (FP) PO SCH ×3 (06:18→21:36)
[2018-08-11] MEDS: busPIRone HCL 10 MG TABLET (FP) PO SCH ×3 (06:18→21:36)
[2018-08-11] MEDS: hydrOXYzine PAMOATE 50 MG CAPSULE (FP) PO PRN ×2 (06:21→10:46)
[2018-08-11] MEDS: NICOTINE POLACRILEX 2 MG GUM BUC PRN ×2 (06:22→21:37)
[2018-08-11] MEDS: BACITRACIN 0.9 GM PACKET TP SCH ×3 (07:16→21:36)
[2018-08-11] MEDS: SERTRALINE HCL 50 MG TABLET (FP) PO SCH (10:46)
[2018-08-11] MEDS: PRENATAL VITAMINS W/ FOLIC ACID TABLET (FP) PO SCH (10:46)
[2018-08-11] MEDS: NICOTINE 14 MG/24 HOURS TOPICAL PATCH TD SCH (10:46)
[2018-08-11] MEDS: TRIAMCINOLONE ACET 0.5% OINT 15 GM TUBE TP SCH ×2 (10:46→21:36)
[2018-08-11] MEDS: diphenhydrAMINE HCL 25 MG CAPSULE (FP) PO PRN ×2 (10:47→21:36)
[2018-08-11] MEDS: THIAMINE HCL 100 MG TABLET (FP) PO SCH (21:36)
[2018-08-11] MEDS: QUEtiapine FUMARATE 50 MG TABLET PO SCH (21:36)
[2018-08-12] MEDS: VITAMINS A AND D TOPICAL OINTMENT 60 GM TUBE TP SCH ×5 (00:35→23:22)
[2018-08-12] MEDS: GABAPENTIN 300 MG CAPSULE (FP) PO SCH ×3 (06:17→21:36)
[2018-08-12] MEDS: METHADONE HCL 40 MG DISPERSABLE TABLET PO SCH (06:17)
[2018-08-12] MEDS: busPIRone HCL 10 MG TABLET (FP) PO SCH ×3 (06:17→21:36)
[2018-08-12] MEDS: BACITRACIN 0.9 GM PACKET TP SCH ×3 (06:18→21:36)
[2018-08-12] MEDS: CEPHALEXIN MONOHYDRATE 500 MG CAPSULE (UD) PO SCH ×4 (06:18→23:21)
[2018-08-12] MEDS: hydrOXYzine PAMOATE 50 MG CAPSULE (FP) PO PRN ×3 (06:19→21:37)
[2018-08-12] MEDS: NICOTINE POLACRILEX 2 MG GUM BUC PRN ×5 (06:20→21:39)
[2018-08-12] MEDS: TRIAMCINOLONE ACET 0.5% OINT 15 GM TUBE TP SCH ×2 (10:41→21:37)
[2018-08-12] MEDS: PRENATAL VITAMINS W/ FOLIC ACID TABLET (FP) PO SCH (10:41)
[2018-08-12] MEDS: NICOTINE 14 MG/24 HOURS TOPICAL PATCH TD SCH (10:41)
[2018-08-12] MEDS: SERTRALINE HCL 50 MG TABLET (FP) PO SCH (10:53)
[2018-08-12] MEDS: THIAMINE HCL 100 MG TABLET (FP) PO SCH (21:36)
[2018-08-12] MEDS: QUEtiapine FUMARATE 50 MG TABLET PO SCH (21:36)
[2018-08-12] MEDS: MELATONIN 5 MG TABLETS PO PRN (21:38)
[2018-08-13] MEDS: METHADONE HCL 40 MG DISPERSABLE TABLET PO SCH (06:22)
[2018-08-13] MEDS: CEPHALEXIN MONOHYDRATE 500 MG CAPSULE (UD) PO SCH ×2 (06:24→11:54)
[2018-08-13] MEDS: busPIRone HCL 10 MG TABLET (FP) PO SCH ×2 (06:24→14:21)
[2018-08-13] MEDS: GABAPENTIN 300 MG CAPSULE (FP) PO SCH ×2 (06:24→14:21)
[2018-08-13] MEDS: BACITRACIN 0.9 GM PACKET TP SCH ×2 (06:24→14:21)
[2018-08-13] MEDS: hydrOXYzine PAMOATE 50 MG CAPSULE (FP) PO PRN ×2 (06:26→10:19)
[2018-08-13] MEDS: NICOTINE POLACRILEX 2 MG GUM BUC PRN ×3 (06:26→14:24)
[2018-08-13] MEDS: VITAMINS A AND D TOPICAL OINTMENT 60 GM TUBE TP SCH ×2 (06:46→11:54)
[2018-08-13 07:15] VITALS: BP 141/79; PULSE 63; TEMP 98
[2018-08-13] MEDS: NICOTINE 14 MG/24 HOURS TOPICAL PATCH TD SCH (10:18)
[2018-08-13] MEDS: PRENATAL VITAMINS W/ FOLIC ACID TABLET (FP) PO SCH (10:18)
[2018-08-13] MEDS: TRIAMCINOLONE ACET 0.5% OINT 15 GM TUBE TP SCH (10:18)
[2018-08-13] MEDS: SERTRALINE HCL 50 MG TABLET (FP) PO SCH (10:18)
[2018-08-13] MEDS: diphenhydrAMINE HCL 25 MG CAPSULE (FP) PO PRN (14:23)
--- NOTE | 2018-08-13 16:02 | PN ---
Psychiatric Progress Note Vital Signs: Vital Signs Period Temp Pulse Resp BP Sys/Cordero Pulse Ox Last 24 Hr 98.0 F 63 18-18 141/79 Date of Session: 08/13/18 Chief Complaint:: "Discharge" HPI: Pt. admitted to for alcohol, cocaine and opiate dependence ROS: Hep C and Ezcema. Current Medications: Active Medications Generic Name Dose Route Start Last Admin Trade Name Freq PRN Reason Stop Dose Admin Acetaminophen 650 mg 08/02/18 20:45 Tylenol - PO Q4H PRN FEVER Al Hydroxide/Mg Hydroxide 30 ml 08/02/18 20:45 Mylanta Oral Suspension - PO Q6H PRN DYSPEPSIA Bacitracin 0.9 gm 08/02/18 22:00 08/13/18 14:21 Bacitracin - TP 0.9 gm TID LON Administration Buspirone HCl 10 mg 08/02/18 22:00 08/13/18 14:21 Buspar - PO 10 mg TID LON Administration Cephalexin HCl 500 mg 08/06/18 12:00 08/13/18 11:54 Keflex - PO 500 mg Q6HPO LON Administration Diphenhydramine HCl 25 mg 08/02/18 20:46 08/13/18 14:23 Benadryl - PO 25 mg Q6H PRN Administration FOR ITCHING Eucalyptus/Menthol/Phenol/Sorbitol 1 each 08/02/18 20:45 Cepastat Lozenge - MM Q4H PRN SORE THROAT Gabapentin 300 mg 08/02/18 22:00 08/13/18 14:21 Neurontin - PO 300 mg TID LON Administration Guaifenesin 10 ml 08/02/18 20:45 Robitussin Dm - PO Q6H PRN COUGH Hydroxyzine Pamoate 50 mg 08/02/18 20:45 08/13/18 10:19 Vistaril - PO 50 mg Q4H PRN Administration AGITATION Ibuprofen 400 mg 08/02/18 20:45 08/09/18 10:37 Motrin - PO 400 mg Q6H PRN Administration Pain Level 4-6 Loperamide HCl 4 mg 08/02/18 20:45 Imodium - PO Q6H PRN DIARRHEA Magnesium Citrate 300 ml 08/02/18 20:45 Citroma - PO Q48H PRN CONSTIPATION Magnesium Hydroxide 30 ml 08/02/18 20:45 Milk Of Magnesia - PO DAILY PRN CONSTIPATION Melatonin 5 mg 08/02/18 22:00 08/12/18 21:38 Melatonin PO 5 mg HS PRN Administration INSOMNIA Methadone HCl 80 mg 08/09/18 06:00 08/13/18 06:22 Dolophine - PO 08/15/18 05:59 80 mg DAILY@0600 LON Administration Nicotine 14 mg 08/03/18 10:00 08/13/18 10:18 Nicoderm Patch - TD 14 mg DAILY LON Administration Nicotine Polacrilex 2 mg 08/02/18 20:45 08/13/18 14:24 Nicorette Gum - BUC 2 mg Q2H PRN Administration NICOTINE REPLACEMENT RX Multivit/Folic Acid/Iron 1 tab 08/03/18 10:00 08/13/18 10:18 Vitamins (Sjr) - PO 1 tab DAILY LON Administration Pseudoephedrine/Triprolidine 1 combo 08/02/18 20:45 Actifed - PO TID PRN NASAL CONGESTION Quetiapine Fumarate 50 mg 08/05/18 22:00 08/12/18 21:36 Seroquel - PO 50 mg HS LON Administration Sertraline HCl 50 mg 08/03/18 10:00 08/13/18 10:18 Zoloft - PO 50 mg DAILY LON Administration Thiamine HCl 100 mg 08/02/18 22:00 08/12/18 21:36 Vitamin B1 - PO 100 mg HS LON Administration Triamcinolone Acetonide 1 applic 08/02/18 22:00 08/13/18 10:18 Aristocort 0.5% Ointment - TP Not Given BID LON Vitamin A/Vitamin D 1 applic 08/03/18 00:00 08/13/18 11:54 Vitamin A & D Top Oint - TP Not Given Q6HPO [facility] Medication(s) Change(s): No. Current Side Effect: No Lab tests ordered: No Lab tests reviewed: Yes Provider note:: Patient scheduled to leave on 08/16/18 but is requesting an early discharge on 08/13/18. He has met his treatment goals and is able to identify behaviors that contribute to relapsing. Through participation of this program patient has learned the importance of changing his behaviors and the need for more structure in his life. Patient will continue to address additional issues at the [facility] outpatient methadone clinic. Patient was able to accept zoloft 50mg + Seroquel 50mg + Buspar 10mg TID with good effect. An electronic prescription for 30 days of zoloft 50mg + Buspar 10mg TID + Seroquel 50mg qhs was electronically sent to [facility] at [address] [place] [address]. Patient is stable for discharge on 08/13/18. Total face to face time:: 35 Mental Status Exam - Mental Status Exam Alert and Oriented to: Time, Place, Person Cognitive Function: Good Patient Appearance: Well Groomed Mood: Hopeful Affect: Appropriate, Mood Congruent Patient Behavior: Appropriate, Cooperative Speech Pattern: Clear, Appropriate Voice Loudness: Normal Thought Process: Intact, Goal Oriented Thought Disorder: Not Present Hallucinations: Denies Suicidal Ideation: Denies Homicidal Ideation: Denies Insight/Judgement: Good Sleep: Well Appetite: Good Muscle strength/Tone: Normal Gait/Station: Normal Psychiatric Treatment Plan - Problem List (1) Alcohol dependence Current Visit: Yes (2) Cocaine dependence Current Visit: Yes (3) Opioid dependence on agonist therapy Current Visit: Yes (4) PTSD (post-traumatic stress disorder) Current Visit: Yes Comment: As per self-report and current records. (5) Substance-induced sleep disorder Current Visit: Yes (6) Substance induced mood disorder Current Visit: Yes
== END 2018-08-13 16:15 | disposition home or self-care (01) | DRG 773 ==
LOC: YASAS 20:03 → Y5N 20:04
PROVIDERS: ADMIT Psychiatry & Neurology Psychiatry; ATTEND Psychiatry & Neurology Psychiatry
PROC: HZ2ZZZZ Detoxification Services for Substance Abuse Treatment (ICD-10-PCS; principal; 2018-08-02)
DX: F10.20 Alcohol dependence, uncomplicated (principal); F11.20 Opioid dependence, uncomplicated; F14.20 Cocaine dependence, uncomplicated; F43.10 Post-traumatic stress disorder, unspecified; F19.24 Other psychoactive substance dependence with psychoactive substance-induced mood disorder; F19.282 Other psychoactive substance dependence with psychoactive substance-induced sleep disorder; L03.113 Cellulitis of right upper limb; L02.511 Cutaneous abscess of right hand; L02.413 Cutaneous abscess of right upper limb

== ENCOUNTER 2019-02-03 12:40 | Inpatient (IN) | payer OTHER ==
[2019-02-03 14:52] VITALS: BMI 29.4
--- NOTE | 2019-02-03 15:19 | HP ---
CIWA Score Nausea/Vomitin-No Nausea/No Vomiting Muscle Tremors: 3 Anxiety: 3 Agitation: 0-Normal Activity Paroxysmal Sweats: 3 Orientation: 0-Oriented Tacttile Disturbances: 0-None Auditory Disturbances: 0-None Visual Disturbances: 2-Mild Sensitivity Headache: 3-Moderate CIWA-Ar Total Score: 14 - Admission Criteria OASAS Guidelines: Admission for Medically Managed Detox: Requires at least one of the followin. CIWA greater than 12 2. Seizures within the past 24 hours 3. Delirium tremens within the past 24 hours 4. Hallucinations within the past 24 hours 5. Acute intervention needed for co occurring medical disorder 6. Acute intervention needed for co occurring psychiatric disorder 7. Severe withdrawal that cannot be handled at a lower level of care (continued vomiting, continued diarrhea, abnormal vital signs) requiring intravenous medication and/or fluids 8. Patient presents the following: CIWA greater than 12 Admission Criteria Met: Admission criteria met Admission ROS BHS - HPI Chief Complaint: alcohol detox Allergies/Adverse Reactions: Allergies Allergy/AdvReac Type Severity Reaction Status Date / Time No Known Allergies Allergy Verified 07/30/18 14:06 History of Present Illness: 38 yo male with hx of alcohol, heroin (IV) , cocaine (IV) and xanax dependence is here seeking detox. Last detox at [facility] four months ago, but relapse [facility] mg last medicated today. Denies hx of seizures or blackouts. Longest period of sobriety three years. PMHX: Hep C, Eczema and asthma. Psych depression and bipolar. Denies suicidal / homicidal ideation or hx of suicide attempt Exam Limitations: No Limitations - Ebola screening Have you traveled outside of the country in the last 21 days: No Have you had contact with anyone from an Ebola affected area: No Have you been sick,other than usual withdrawal symptoms: No - Review of Systems Constitutional: Chills, Diaphoresis, Loss of Appetite, Changes in sleep EENT: reports: See HPI (light sensitvity) Respiratory: reports: No Symptoms reported Cardiac: reports: No Symptoms Reported GI: reports: No Symptoms Reported : reports: No Symptoms Reported Musculoskeletal: reports: No Symptoms Reported Integumentary: reports: Dryness, Pruritus Neuro: reports: Weakness Endocrine: reports: Increased Thirst Hematology: reports: No Symptoms Reported Psychiatric: reports: Orientated x3, Anxious Other Systems: Reviewed and Negative Patient History - Patient Medical History Hx Anemia: No Hx Asthma: Yes Hx Chronic Obstructive Pulmonary Disease (COPD): No Hx Cancer: No Hx Cardiac Disorders: No Hx Congestive Heart Failure: No Hx Hypertension: No Hx Hypercholesterolemia: No Hx Pacemaker: No HX Cerebrovascular Accident: No Hx Seizures: No Hx Dementia: No Hx Diabetes: No Hx Gastrointestinal Disorders: No Hx Liver Disease: Yes (Hep C) Hx Genitourinary Disorders: No Hx Sexually Transmitted Disorders: No Hx Renal Disease (ESRD): No Hx Thyroid Disease: No Hx Human Immunodeficiency Virus (HIV): No (Negative 2016) Hx Hepatitis C: Yes (Not on medication) Hx Depression: Yes Hx Suicide Attempt: No Hx Bipolar Disorder: Yes Hx Schizophrenia: No - Patient Surgical History Past Surgical History: No Hx Neurologic Surgery: No Hx Cataract Extraction: No Hx Cardiac Surgery: No Hx Lung Surgery: No Hx Breast Surgery: No Hx Breast Biopsy: No Hx Abdominal Surgery: No Hx Appendectomy: No Hx Cholecystectomy: No Hx Genitourinary Surgery: No Hx Section: No Hx Orthopedic Surgery: No Anesthesia Reaction: No - PPD History Previous Implant?: No Documented Results: Negative w/proof Date: 01/23/18 Results: 0 mm PPD to be Administered?: Yes - Smoking Cessation Smoking history: Current every day smoker Have you smoked in the past 12 months: Yes Aproximately how many cigarettes per day: 20 Cigars Per Day: 0 Hx Chewing Tobacco Use: No Initiated information on smoking cessation: Yes 'Breaking Loose' booklet given: 02/03/19 - Substance & Tx. History Hx Alcohol Use: Yes Hx Substance Use: Yes Substance Use Type: Alcohol, Cocaine, Heroin, Tranquilizers Hx Substance Use Treatment: Yes (ast detox at [facility] four months ago) - Substances Abused alcohol Route: Oral Frequency: Daily Amount used: 1 pint liquor + 8 beers x 16 oz beers Age of first use: 18 Date of Last Use: 02/03/19 xanax Route: Oral Frequency: 3-6 times per week Amount used: 8 mg Age of first use: 28 Date of Last Use: 02/02/19 cocaine Route: Injection Frequency: 3-6 times per week Amount used: $40 Age of first use: 19 Date of Last Use: 02/02/19 Heroin Route: Injection Frequency: 1-2 times per week Amount used: 1 -2 bags Age of first use: 20 Date of Last Use: 02/02/19 Family Disease History - Family Disease History Family History: Denies Admission Physical Exam [facility] - Vital Signs Vital Signs: Vital Signs - 24 hr 02/03/19 14:50 Temperature 96.8 F L Pulse Rate 66 Respiratory 18 Rate Blood Pressure 123/74 - Physical General Appearance: Yes: Disheveled (restless, itching all over), Mild Distress , Thin, Sweating, Anxious HEENTM: Yes: EOMI, Hearing grossly Normal, Normal ENT Inspection, Normocephalic , Normal Voice, Pharynx Normal, Tm's normal, Other (cheilitis) Respiratory: Yes: Chest Non-Tender, Lungs Clear, Normal Breath Sounds, No Respiratory Distress, No Accessory Muscle Use Neck: Yes: No masses,lesions,Nodules, Trachea in good position Breast: Yes: Breast Exam Deferred Cardiology: Yes: Regular Rhythm, Regular Rate Abdominal: Yes: Normal Bowel Sounds, Non Tender, Flat, Soft Genitourinary: Yes: Within Normal Limits Back: Yes: Normal Inspection Musculoskeletal: Yes: full range of Motion, Gait Steady, Pelvis Stable Extremities: Yes: Normal Capillary Refill, Normal Inspection, Normal Range of Motion, Non-Tender 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 NML intact, Fully Oriented, Alert, Motor Strength 5/5, Depressed Affect Integumentary: Yes: Normal Color, Warm, Track Chaudhary (bilateral anticubital fossa , no infection present, + erythema and linchification b/t wrist and elbow extensors), Other Lymphatic: Yes: Within Normal Limits - Diagnostic (1) Hep C w/ coma, chronic Current Visit: Yes Status: Chronic (2) Alcohol dependence with uncomplicated withdrawal Current Visit: Yes Status: Acute (3) Nicotine dependence Current Visit: Yes Status: Acute Qualifiers: Nicotine product type: cigarettes Substance use status: in withdrawal Qualified Code(s): F17.213 - Nicotine dependence, cigarettes, with withdrawal (4) Sedative hypnotic or anxiolytic dependence Current Visit: Yes Status: Acute (5) Opioid dependence on agonist therapy Current Visit: Yes Status: Chronic Comment: [facility]MTP at [facility] pending verification Cleared for Admission [facility] - Detox or Rehab [facility] Level of Care: Medically Managed Detox Regimen/Protocol: Librium BHS Breath Alcohol Content Breath Alcohol Content: 0 Urine Drug Screen - Results Drug Screen Negative: No Urine Drug Screen Results: RICH-Cocaine, OPI-Opiates, BZO-Benzodiazepines, MTD- Methadone, FEN-Fentanyl Inpatient Rehab Admission - Rehab Decision to Admit Inpatient rehab admission?: No
[2019-02-03] MEDS ORDERED: MAG HYDROX/AL HYDROX/SIMETH 30 ML UNIT-DOSE CUP PO PRN (15:29)
[2019-02-03] MEDS ORDERED: chlordiazePOXIDE HCL 25 MG CAPSULE PO PRN (15:29)
[2019-02-03] MEDS ORDERED: MENTHOL/PHENOL 1 EACH UD MM PRN (15:29)
[2019-02-03] MEDS ORDERED: BISMUTH SUBSALICYLATE 524 MG/30 ML UD PO PRN (15:29)
[2019-02-03] MEDS ORDERED: MAGNESIUM HYDROX 2400MG/30ML ORAL SUSPENSION 30 ML CUP PO PRN (15:29)
[2019-02-03] MEDS ORDERED: IBUPROFEN 400 MG TABLET (FP) PO PRN ×2 (15:29)
[2019-02-03] MEDS ORDERED: BACLOFEN 10 MG TABLET (FP) PO PRN (15:29)
[2019-02-03] MEDS ORDERED: MAGNESIUM CITRATE 300 ML BOTTLE PO PRN (15:29)
[2019-02-03] MEDS ORDERED: ONDANSETRON *ODT* 4 MG TABLET SL PRN (15:29)
[2019-02-03] MEDS ORDERED: chlordiazePOXIDE HCL 25 MG CAPSULE PO ONE (17:00)
[2019-02-03] MEDS: chlordiazePOXIDE HCL 25 MG CAPSULE PO SCH (22:09)
[2019-02-03] MEDS: THIAMINE HCL 100 MG TABLET (FP) PO SCH (22:09)
[2019-02-03] MEDS: BACITRACIN 0.9 GM PACKET TP SCH (22:09)
[2019-02-03] MEDS: VITAMINS A AND D TOPICAL OINTMENT 60 GM TUBE TP SCH (22:12)
[2019-02-03] MEDS: TRIAMCINOLONE ACET 0.5% OINT 15 GM TUBE TP SCH (22:12)
[2019-02-04] MEDS: VITAMINS A AND D TOPICAL OINTMENT 60 GM TUBE TP SCH ×5 (02:12→23:33)
[2019-02-04 05:12] LABS: URINE APPEARANCE TURBID; URINE BILIRUBIN NEGATIVE (NEGATIVE); URINE COLOR DK YELLOW; URINE GLUCOSE (UA) NEGATIVE (NEGATIVE); URINE KETONE TRACE (NEGATIVE); URINE LEUK ESTERASE NEGATIVE (NEGATIVE); URINE NITRITE NEGATIVE (NEGATIVE); URINE PROTEIN NEGATIVE (NEGATIVE)
[2019-02-04] MEDS: chlordiazePOXIDE HCL 25 MG CAPSULE PO SCH ×4 (05:33→22:35)
--- NOTE | 2019-02-04 09:29 | EKG ---
Test Reason : Blood Pressure : / mmHG Vent. Rate : 063 BPM Atrial Rate : 063 BPM P-R Int : 140 ms QRS Dur : 070 ms QT Int : 402 ms P-R-T Axes : 012 043 027 degrees QTc Int : 411 ms NORMAL SINUS RHYTHM NORMAL ECG WHEN COMPARED WITH ECG OF 30-JUL-2018 17:11, PREMATURE VENTRICULAR COMPLEXES ARE NO LONGER PRESENT Confirmed by ZOE WOODY MD ([id number]) on 02/04/2019 9:29:12 AM Referred By: Confirmed By:ZOE WOODY MD
[2019-02-04] MEDS: PRENATAL VITAMINS W/ FOLIC ACID TABLET (FP) PO SCH (09:51)
[2019-02-04] MEDS: TRIAMCINOLONE ACET 0.5% OINT 15 GM TUBE TP SCH ×2 (09:51→23:33)
[2019-02-04] MEDS: BACITRACIN 0.9 GM PACKET TP SCH ×2 (09:51→22:35)
[2019-02-04] MEDS: NICOTINE 21 MG/24 HOURS TOPICAL PATCH TD SCH (09:54)
[2019-02-04] MEDS: NICOTINE POLACRILEX 2 MG GUM BUC PRN ×3 (09:54→22:35)
[2019-02-04] MEDS ORDERED: METHADONE HCL 40 MG DISPERSABLE TABLET PO ONE (10:00)
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
[2019-02-04] MEDS: SERTRALINE HCL 50 MG TABLET (FP) PO SCH (11:44)
--- NOTE | 2019-02-04 11:52 | PN ---
[facility] CIWA - CIWA Score Nausea/Vomitin-No Nausea/No Vomiting Muscle Tremors: 2 Anxiety: 3 Agitation: 2 Paroxysmal Sweats: 1-Minimal Palms Moist Orientation: 1-Uncertain about Date Tacttile Disturbances: 0-None Auditory Disturbances: 0-None Visual Disturbances: 0-None Headache: 1-Very Mild CIWA-Ar Total Score: 10 S Progress Note (SOAP) Subjective: doing ok with the librium had methadone 80 mg today Objective: 02/04/19 11:54 Vital Signs Temperature 97 F L 02/04/19 09:19 Pulse Rate 90 02/04/19 09:19 Respiratory Rate 16 02/04/19 09:19 Blood Pressure 96/58 L 02/04/19 09:19 O2 Sat by Pulse Oximetry (%) Laboratory Last Values Urine Color Dk yellow 02/04/19 00:05 Urine Appearance Turbid 02/04/19 00:05 Urine pH 5.0 (5.0-8.0) 02/04/19 00:05 Ur Specific [place] 1.019 (1.010-1.035) 02/04/19 00:05 Urine Protein Negative (NEGATIVE) 02/04/19 00:05 Urine Glucose (UA) Negative (NEGATIVE) 02/04/19 00:05 Urine Ketones Trace (NEGATIVE) H 02/04/19 00:05 Urine Blood Negative (NEGATIVE) 02/04/19 00:05 Urine Nitrite Negative (NEGATIVE) 02/04/19 00:05 Urine Bilirubin Negative (NEGATIVE) 02/04/19 00:05 Urine Urobilinogen 1.0 mg/dL (0.2-1.0) 02/04/19 00:05 Ur Leukocyte Esterase Negative (NEGATIVE) 02/04/19 00:05 02/04/19 11:54 lab pending Assessment: 02/04/19 11:54 alcohol withdrawal sx Plan: continue detox
[2019-02-04 12:20] LABS: HEMATOCRIT 37.8 % (35.4-49); HEMOGLOBIN 12.7 GM/dL (11.7-16.9); MCH 28.6 pg (25.7-33.7); MCHC 33.5 g/dl (32.0-35.9); MEAN CELL VOLUME 85.5 fl (80-96); PLATELET COUNT 158 K/MM3 (134-434); RBC 4.42 M/mm3 (4.00-5.60); RDW 14.6 % (11.9-15.9); WHITE BLOOD COUNT 2.7 K/mm3 (4.0-10.0)
[2019-02-04 12:46] LABS: ALBUMIN 3.5 g/dl (3.4-5.0); ALK PHOS 107 U/L (45-117); ANION GAP 8 MMOL/L (8-16); BILIRUBIN,TOTAL 0.3 mg/dL (0.2-1); BLOOD UREA NITROGEN 10 mg/dL (7-18); CHLORIDE 105 mmol/L (98-107); CO2 28 mmol/L (21-32); CREATININE 0.8 mg/dL (0.55-1.3); GLUCOSE,RANDOM 87 mg/dL (74-106); POTASSIUM 3.9 mmol/L (3.5-5.1); SGOT/AST 35 U/L (15-37); SGPT/ALT 32 U/L (13-61); SODIUM 141 mmol/L (136-145); TOT PROT 7.4 g/dl (6.4-8.2)
[2019-02-04] MEDS: busPIRone HCL 10 MG TABLET (FP) PO SCH ×2 (14:40→22:35)
[2019-02-04] MEDS: GABAPENTIN 300 MG CAPSULE (FP) PO SCH ×2 (14:40→22:35)
[2019-02-04] MEDS: MELATONIN 5 MG TABLETS PO PRN (22:35)
[2019-02-04] MEDS: THIAMINE HCL 100 MG TABLET (FP) PO SCH (22:35)
[2019-02-05] MEDS: busPIRone HCL 10 MG TABLET (FP) PO SCH ×3 (06:12→22:23)
[2019-02-05] MEDS: METHADONE HCL 40 MG DISPERSABLE TABLET PO SCH (06:12)
[2019-02-05] MEDS: chlordiazePOXIDE HCL 25 MG CAPSULE PO SCH ×3 (06:12→18:21)
[2019-02-05] MEDS: NICOTINE POLACRILEX 2 MG GUM BUC PRN ×5 (06:14→22:26)
[2019-02-05] MEDS: GABAPENTIN 300 MG CAPSULE (FP) PO SCH ×3 (07:45→22:24)
[2019-02-05] MEDS: VITAMINS A AND D TOPICAL OINTMENT 60 GM TUBE TP SCH ×4 (07:45→23:03)
[2019-02-05] MEDS: SERTRALINE HCL 50 MG TABLET (FP) PO SCH (10:09)
[2019-02-05] MEDS: NICOTINE 21 MG/24 HOURS TOPICAL PATCH TD SCH (10:09)
[2019-02-05] MEDS: TRIAMCINOLONE ACET 0.5% OINT 15 GM TUBE TP SCH ×2 (10:09→22:22)
[2019-02-05] MEDS: BACITRACIN 0.9 GM PACKET TP SCH ×2 (10:09→22:24)
[2019-02-05] MEDS: PRENATAL VITAMINS W/ FOLIC ACID TABLET (FP) PO SCH (10:10)
[2019-02-05] MEDS: diphenhydrAMINE HCL 25 MG CAPSULE (FP) PO PRN ×2 (10:11→18:23)
--- NOTE | 2019-02-05 14:15 | PN ---
[facility] CIWA - CIWA Score Nausea/Vomitin-No Nausea/No Vomiting Muscle Tremors: 1-None Visible, but [place] Anxiety: 1-Mildly Anxious Agitation: 1-Slight > Activity Paroxysmal Sweats: 1-Minimal Palms Moist Orientation: 1-Uncertain about Date Tacttile Disturbances: 0-None Auditory Disturbances: 0-None Visual Disturbances: 0-None Headache: 0-None Present CIWA-Ar Total Score: 5 S Progress Note (SOAP) Subjective: feeling better had methadone 80 mg today discuss aftercare with staff Objective: 02/05/19 14:14 Vital Signs Temperature 97.7 F 02/05/19 13:44 Pulse Rate 74 02/05/19 13:44 Respiratory Rate 18 02/05/19 13:44 Blood Pressure 119/62 02/05/19 13:44 O2 Sat by Pulse Oximetry (%) Laboratory Last Values WBC 2.7 K/mm3 (4.0-10.0) L 02/04/19 07:30 RBC 4.42 M/mm3 (4.00-5.60) 02/04/19 07:30 Hgb 12.7 GM/dL (11.7-16.9) 02/04/19 07:30 Hct 37.8 % (35.4-49) 02/04/19 07:30 MCV 85.5 fl (80-96) 02/04/19 07:30 MCH 28.6 pg (25.7-33.7) 02/04/19 07:30 MCHC 33.5 g/dl (32.0-35.9) 02/04/19 07:30 RDW 14.6 % (11.9-15.9) D 02/04/19 07:30 Plt Count 158 K/MM3 (134-434) D 02/04/19 07:30 MPV 9.0 fl (7.5-11.1) 02/04/19 07:30 Sodium 141 mmol/L (136-145) 02/04/19 07:30 Potassium 3.9 mmol/L (3.5-5.1) 02/04/19 07:30 Chloride 105 mmol/L (98-107) 02/04/19 07:30 Carbon Dioxide 28 mmol/L (21-32) 02/04/19 07:30 Anion Gap 8 MMOL/L (8-16) 02/04/19 07:30 BUN 10 mg/dL (7-18) 02/04/19 07:30 Creatinine 0.8 mg/dL (0.55-1.3) 02/04/19 07:30 Creat Clearance w eGFR 109.38 (>60) 02/04/19 07:30 Random Glucose 87 mg/dL (74-106) 02/04/19 07:30 Calcium 8.0 mg/dL (8.5-10.1) L 02/04/19 07:30 Total Bilirubin 0.3 mg/dL (0.2-1) 02/04/19 07:30 AST 35 U/L (15-37) 02/04/19 07:30 ALT 32 U/L (13-61) 02/04/19 07:30 Alkaline Phosphatase 107 U/L (45-117) 02/04/19 07:30 Total Protein 7.4 g/dl (6.4-8.2) 02/04/19 07:30 Albumin 3.5 g/dl (3.4-5.0) 02/04/19 07:30 Urine Color Dk yellow 02/04/19 00:05 Urine Appearance Turbid 02/04/19 00:05 Urine pH 5.0 (5.0-8.0) 02/04/19 00:05 Ur Specific [place] 1.019 (1.010-1.035) 02/04/19 00:05 Urine Protein Negative (NEGATIVE) 02/04/19 00:05 Urine Glucose (UA) Negative (NEGATIVE) 02/04/19 00:05 Urine Ketones Trace (NEGATIVE) H 02/04/19 00:05 Urine Blood Negative (NEGATIVE) 02/04/19 00:05 Urine Nitrite Negative (NEGATIVE) 02/04/19 00:05 Urine Bilirubin Negative (NEGATIVE) 02/04/19 00:05 Urine Urobilinogen 1.0 mg/dL (0.2-1.0) 02/04/19 00:05 Ur Leukocyte Esterase Negative (NEGATIVE) 02/04/19 00:05 RPR Titer Nonreactive (NONREACTIVE) 02/04/19 07:30 lab noted low wbc Assessment: 02/05/19 14:18 mild withdrawal sx Plan: continue detox
[2019-02-05] MEDS: THIAMINE HCL 100 MG TABLET (FP) PO SCH (22:22)
[2019-02-05] MEDS: MELATONIN 5 MG TABLETS PO PRN (22:24)
[2019-02-05] MEDS: chlordiazePOXIDE HCL 10 MG CAPSULE PO SCH (22:24)
[2019-02-05] MEDS ORDERED: chlordiazePOXIDE HCL 10 MG CAPSULE PO PRN (23:00)
[2019-02-06] MEDS: METHADONE HCL 40 MG DISPERSABLE TABLET PO SCH (05:45)
[2019-02-06] MEDS: busPIRone HCL 10 MG TABLET (FP) PO SCH (05:46)
[2019-02-06] MEDS: chlordiazePOXIDE HCL 10 MG CAPSULE PO SCH ×2 (05:46→10:42)
[2019-02-06] MEDS: NICOTINE POLACRILEX 2 MG GUM BUC PRN (05:47)
[2019-02-06] MEDS: VITAMINS A AND D TOPICAL OINTMENT 60 GM TUBE TP SCH (07:52)
[2019-02-06] MEDS: GABAPENTIN 300 MG CAPSULE (FP) PO SCH (07:52)
[2019-02-06 10:21] VITALS: BP 123/77; PULSE 68; TEMP 98.2
[2019-02-06] MEDS: NICOTINE 21 MG/24 HOURS TOPICAL PATCH TD SCH (10:41)
[2019-02-06] MEDS: SERTRALINE HCL 50 MG TABLET (FP) PO SCH (10:42)
[2019-02-06] MEDS: BACITRACIN 0.9 GM PACKET TP SCH (10:42)
[2019-02-06] MEDS: PRENATAL VITAMINS W/ FOLIC ACID TABLET (FP) PO SCH (10:42)
[2019-02-06] MEDS: TRIAMCINOLONE ACET 0.5% OINT 15 GM TUBE TP SCH (10:42)
[2019-02-06 12:18] LABS: ALBUMIN 3.5 g/dl (3.4-5.0); ALK PHOS 109 U/L (45-117); ANION GAP 4 MMOL/L (8-16); BILIRUBIN,TOTAL 0.4 mg/dL (0.2-1); BLOOD UREA NITROGEN 9 mg/dL (7-18); CHLORIDE 104 mmol/L (98-107); CO2 31 mmol/L (21-32); CREATININE 0.8 mg/dL (0.55-1.3); GLUCOSE,RANDOM 68 mg/dL (74-106); POTASSIUM 4.6 mmol/L (3.5-5.1); SGOT/AST 27 U/L (15-37); SGPT/ALT 32 U/L (13-61); SODIUM 138 mmol/L (136-145); TOT PROT 7.8 g/dl (6.4-8.2)
--- NOTE | 2019-02-06 13:30 | DS ---
[facility] Detox Discharge Summary Admission Date: 02/03/19 Discharge Date: 02/06/19 - History Present History: Alcohol Dependence Additional Comments: 38 years old male admitted on 02/03/19 for alcohol withdrawal stabilization completed detox regimen aftercare [facility] Pertinent Past History: patient agrees to consider return to methadone program for medical and mental issues - Physical Exam Results Vital Signs: Vital Signs Temperature 98.2 F 02/06/19 10:20 Pulse Rate 68 02/06/19 10:20 Respiratory Rate 20 02/06/19 10:20 Blood Pressure 123/77 02/06/19 10:20 O2 Sat by Pulse Oximetry (%) Pertinent Admission Physical Exam Findings: alcohol withdrawal sx Laboratory Last Values WBC 2.7 K/mm3 (4.0-10.0) L 02/04/19 07:30 RBC 4.42 M/mm3 (4.00-5.60) 02/04/19 07:30 Hgb 12.7 GM/dL (11.7-16.9) 02/04/19 07:30 Hct 37.8 % (35.4-49) 02/04/19 07:30 MCV 85.5 fl (80-96) 02/04/19 07:30 MCH 28.6 pg (25.7-33.7) 02/04/19 07:30 MCHC 33.5 g/dl (32.0-35.9) 02/04/19 07:30 RDW 14.6 % (11.9-15.9) D 02/04/19 07:30 Plt Count 158 K/MM3 (134-434) D 02/04/19 07:30 MPV 9.0 fl (7.5-11.1) 02/04/19 07:30 Sodium 138 mmol/L (136-145) 02/06/19 09:50 Potassium 4.6 mmol/L (3.5-5.1) 02/06/19 09:50 Chloride 104 mmol/L (98-107) 02/06/19 09:50 Carbon Dioxide 31 mmol/L (21-32) 02/06/19 09:50 Anion Gap 4 MMOL/L (8-16) L 02/06/19 09:50 BUN 9 mg/dL (7-18) 02/06/19 09:50 Creatinine 0.8 mg/dL (0.55-1.3) 02/06/19 09:50 Creat Clearance w eGFR 109.38 (>60) 02/06/19 09:50 Random Glucose 68 mg/dL (74-106) L 02/06/19 09:50 Calcium 9.0 mg/dL (8.5-10.1) 02/06/19 09:50 Total Bilirubin 0.4 mg/dL (0.2-1) 02/06/19 09:50 AST 27 U/L (15-37) 02/06/19 09:50 ALT 32 U/L (13-61) 02/06/19 09:50 Alkaline Phosphatase 109 U/L (45-117) 02/06/19 09:50 Total Protein 7.8 g/dl (6.4-8.2) 02/06/19 09:50 Albumin 3.5 g/dl (3.4-5.0) 02/06/19 09:50 Urine Color Dk yellow 02/04/19 00:05 Urine Appearance Turbid 02/04/19 00:05 Urine pH 5.0 (5.0-8.0) 02/04/19 00:05 Ur Specific [place] 1.019 (1.010-1.035) 02/04/19 00:05 Urine Protein Negative (NEGATIVE) 02/04/19 00:05 Urine Glucose (UA) Negative (NEGATIVE) 02/04/19 00:05 Urine Ketones Trace (NEGATIVE) H 02/04/19 00:05 Urine Blood Negative (NEGATIVE) 02/04/19 00:05 Urine Nitrite Negative (NEGATIVE) 02/04/19 00:05 Urine Bilirubin Negative (NEGATIVE) 02/04/19 00:05 Urine Urobilinogen 1.0 mg/dL (0.2-1.0) 02/04/19 00:05 Ur Leukocyte Esterase Negative (NEGATIVE) 02/04/19 00:05 RPR Titer Nonreactive (NONREACTIVE) 02/04/19 07:30 lab noted - Treatment Hospital Course: Detox Protocol Followed, Detoxed Safely, Responded well, Discharged Condition Good, Rehab Referral Accepted Patient has Accepted a Rehab Referral to: [facility] / [facility] - Medication Discharge Medications: Ambulatory Orders Sertraline HCl [Zoloft -] 50 mg PO DAILY 01/19/16 Buspirone HCl [Buspar -] 10 mg PO TID #90 tablet 08/13/18 Gabapentin [Neurontin -] 300 mg PO TID #90 cap 08/13/18 - Diagnosis (1) Nicotine dependence Status: Acute Qualifiers: Nicotine product type: cigarettes Substance use status: in withdrawal Qualified Code(s): F17.213 - Nicotine dependence, cigarettes, with withdrawal (2) Alcohol dependence with uncomplicated withdrawal Status: Acute (3) Methadone maintenance therapy patient Status: Chronic (4) Asthma Status: Chronic Qualifiers: Asthma severity: mild Asthma persistence: intermittent Asthma complication type: with status asthmaticus Qualified Code(s): J45.22 - Mild intermittent asthma with status asthmaticus (5) Hepatitis C Status: Chronic Qualifiers: Viral hepatitis chronicity: chronic Hepatic coma status: without hepatic coma Qualified Code(s): B18.2 - Chronic viral hepatitis C (6) Opioid dependence on agonist therapy Status: Chronic (7) Substance induced mood disorder Status: Suspected - AMA Did Patient Leave Against Medical Advice: No
[2019-02-06] MEDS ORDERED: chlordiazePOXIDE HCL 10 MG CAPSULE PO SCH (23:00)
== END 2019-02-06 10:56 | disposition home or self-care (01) | DRG 773 ==
LOC: YASAS 12:40 → Y3N 17:12
PROVIDERS: ADMIT Surgery; ATTEND Surgery
PROC: HZ2ZZZZ Detoxification Services for Substance Abuse Treatment (ICD-10-PCS; principal; 2019-02-03)
DX: F10.230 Alcohol dependence with withdrawal, uncomplicated (principal); F11.20 Opioid dependence, uncomplicated; F13.20 Sedative, hypnotic or anxiolytic dependence, uncomplicated; F17.213 Nicotine dependence, cigarettes, with withdrawal; F19.24 Other psychoactive substance dependence with psychoactive substance-induced mood disorder; F43.10 Post-traumatic stress disorder, unspecified; J45.22 Mild intermittent asthma with status asthmaticus; B18.2 Chronic viral hepatitis C
CPT/HCPCS: 36415; 80053; 81003; 85027; 86593; 93005; 93010

== ENCOUNTER 2019-02-24 10:46 | Inpatient (IN) | payer OTHER ==
[2019-02-24 11:58] VITALS: BMI 26.4
--- NOTE | 2019-02-24 13:43 | HP ---
CIWA Score Nausea/Vomitin Muscle Tremors: 2 Anxiety: 2 Agitation: 2 Paroxysmal Sweats: 1-Minimal Palms Moist Orientation: 0-Oriented Tacttile Disturbances: 1-Very Mild Itch/Numbness Auditory Disturbances: 1-Very Mild Visual Disturbances: 0-None Headache: 2-Mild CIWA-Ar Total Score: 13 - Admission Criteria OASAS Guidelines: Admission for Medically Managed Detox: Requires at least one of the followin. CIWA greater than 12 2. Seizures within the past 24 hours 3. Delirium tremens within the past 24 hours 4. Hallucinations within the past 24 hours 5. Acute intervention needed for co occurring medical disorder 6. Acute intervention needed for co occurring psychiatric disorder 7. Severe withdrawal that cannot be handled at a lower level of care (continued vomiting, continued diarrhea, abnormal vital signs) requiring intravenous medication and/or fluids 8. Admission ROS S - HPI Chief Complaint: i need help to stop drinking alcohol,xanax,heroin abused,mmtp 80 mgs/day,last medicated today Allergies/Adverse Reactions: Allergies Allergy/AdvReac Type Severity Reaction Status Date / Time No Known Allergies Allergy Verified 02/24/19 11:47 History of Present Illness: this 38 years old male with alcohol and xanax dependence,heroin abused,seeking detox,withdrawal symptom, mmtp 80 mgs/day,last medicated today syncope alcohol and drug related hepatitis c not treated nicotine dependence 1/2 pack requesting nicotine patch and gum weight loss depression,ptsd on med plan to go to rehab eczema since he was born Exam Limitations: No Limitations - Ebola screening Have you traveled outside of the country in the last 21 days: No Have you had contact with anyone from an Ebola affected area: No - Review of Systems Constitutional: Loss of Appetite, Malaise, Night Sweats, Changes in sleep, Unintentional Wgt. Loss EENT: reports: Tearing, Nose Congestion Respiratory: reports: No Symptoms reported Cardiac: reports: No Symptoms Reported GI: reports: Nausea, Poor Appetite, Abdominal cramping : reports: No Symptoms Reported Musculoskeletal: reports: Back Pain, Muscle Pain Integumentary: reports: Dryness Neuro: reports: Headache, Tremors Endocrine: reports: No Symptoms Reported Hematology: reports: No Symptoms Reported Psychiatric: reports: No Sypmtoms Reported, Judgement Intact, Mood/Affect Appropiate, Orientated x3, Anxious, Depressed, other (ptsd) Other Systems: Reviewed and Negative Patient History - Patient Medical History Hx Anemia: No Hx Asthma: No Hx Chronic Obstructive Pulmonary Disease (COPD): No Hx Cancer: No Hx Cardiac Disorders: No Hx Congestive Heart Failure: No Hx Hypertension: No Hx Hypercholesterolemia: No Hx Pacemaker: No HX Cerebrovascular Accident: No Hx Seizures: No Hx Dementia: No Hx Diabetes: No Hx Gastrointestinal Disorders: No Hx Liver Disease: Yes (Hep C) Hx Genitourinary Disorders: No Hx Sexually Transmitted Disorders: No Hx Renal Disease (ESRD): No Hx Thyroid Disease: No Hx Human Immunodeficiency Virus (HIV): No (Negative 01/28 negative) Hx Hepatitis C: Yes (Not on medication) Hx Depression: Yes Hx Suicide Attempt: No Hx Bipolar Disorder: Yes Hx Schizophrenia: No Other Medical History: no suicidal,no homicidal - Patient Surgical History Past Surgical History: No Hx Neurologic Surgery: No Hx Cataract Extraction: No Hx Cardiac Surgery: No Hx Lung Surgery: No Hx Breast Surgery: No Hx Breast Biopsy: No Hx Abdominal Surgery: No Hx Appendectomy: No Hx Cholecystectomy: No Hx Genitourinary Surgery: No Hx Section: No Hx Orthopedic Surgery: No Anesthesia Reaction: No - PPD History Previous Implant?: Yes Documented Results: Negative w/proof Implanted On Prior R Admission?: Yes Date: 02/05/19 Results: 0 mm PPD to be Administered?: No - Smoking Cessation Smoking history: Current every day smoker Have you smoked in the past 12 months: Yes Aproximately how many cigarettes per day: 20 Cigars Per Day: 0 Hx Chewing Tobacco Use: No Initiated information on smoking cessation: Yes 'Breaking Loose' booklet given: 02/24/19 - Substance & Tx. History Hx Alcohol Use: Yes Hx Substance Use: Yes Substance Use Type: Alcohol, Tranquilizers Hx Substance Use Treatment: Yes ([facility] 02/03/19 to 02/06/19) - Substances abused Alcohol Substance route: Oral Frequency: Daily Amount used: 1 pt. vodka, 7 cans beer (16 oz) Age of first use: 17 Date of last use: 02/24/19 Alprazolam (Xanax) Substance route: Oral Frequency: Daily Amount used: 6mg Age of first use: 25 Date of last use: 02/23/19 Heroin Substance route: Injection Frequency: Daily Amount used: 3 to 4 bags Age of first use: 20 Date of last use: 02/23/19 Family Disease History - Family Disease History Family History: Denies Admission Physical Exam [facility] - Vital Signs Vital Signs: Vital Signs - 24 hr 02/24/19 11:44 Temperature 98 F Pulse Rate 60 Respiratory 18 Rate Blood Pressure 111/63 - Physical General Appearance: Yes: Moderate Distress, Tremorous, Irritable, Sweating, Anxious HEENTM: Yes: Normal ENT Inspection, SHANNAN, Pharynx Normal Respiratory: Yes: Lungs Clear, Normal Breath Sounds, No Respiratory Distress Neck: Yes: Within Normal Limits, Supple, Trachea in good position Breast: Yes: Within Normal Limits Cardiology: Yes: Within Normal Limits, Regular Rhythm, Regular Rate, S1, S2 Abdominal: Yes: Within Normal Limits, Normal Bowel Sounds, Non Tender, Flat, Soft Genitourinary: Yes: Within Normal Limits Back: Yes: Muscle Spasm Musculoskeletal: Yes: Back pain, Joint Stiffness, Muscle Pain Extremities: Yes: Tremors Neurological: Yes: director of institutional research II-XII NML intact, Fully Oriented, Alert, Motor Strength 5/5 Integumentary: Yes: Dry, Rash, Track Chaudhary Lymphatic: Yes: Within Normal Limits - Diagnostic (1) Alcohol dependence with uncomplicated withdrawal Current Visit: No Status: Acute (2) Sedative hypnotic or anxiolytic dependence Current Visit: No Status: Acute (3) Asthma Current Visit: No Status: Chronic Qualifiers: Asthma severity: mild Asthma persistence: intermittent Asthma complication type: with status asthmaticus Qualified Code(s): J45.22 - Mild intermittent asthma with status asthmaticus (4) Eczema Current Visit: No Status: Chronic Qualifiers: Eczema type: intrinsic Qualified Code(s): L20.84 - Intrinsic (allergic) eczema (5) Hepatitis C Current Visit: No Status: Chronic Qualifiers: Viral hepatitis chronicity: chronic Hepatic coma status: without hepatic coma Qualified Code(s): B18.2 - Chronic viral hepatitis C (6) Opioid dependence on agonist therapy Current Visit: No Status: Chronic Comment: MMTP at [facility] dose pending verification (7) PTSD (post-traumatic stress disorder) Current Visit: No Status: Chronic Comment: As per self-report and current records. (8) Seizures Current Visit: No Status: Chronic (9) Bipolar disorder Current Visit: No Status: Suspected Cleared for Admission [facility] - Detox or Rehab [facility] Level of Care: Medically Managed Detox Regimen/Protocol: Librium Breathalyzer - Breathalyzer Breathalyzer: 0 Urine Drug Screen - Test Device Lot number: [id number] Expiration date: 10/11/20 - Control Is test valid?: Yes - Results Drug screen NEGATIVE: No Urine drug screen results: RICH-Cocaine, FEN-Fentanyl, MOP-Opiates, MTD-Methadone , BZO-Benzodiazepines Inpatient Rehab Admission - Rehab Decision to Admit Inpatient rehab admission?: No
[2019-02-24] MEDS ORDERED: MAGNESIUM CITRATE 300 ML BOTTLE PO PRN (13:51)
[2019-02-24] MEDS ORDERED: ACETAMINOPHEN 325 MG TABLET (FP) PO PRN ×2 (13:51)
[2019-02-24] MEDS ORDERED: BISMUTH SUBSALICYLATE 524 MG/30 ML UD PO PRN (13:51)
[2019-02-24] MEDS ORDERED: IBUPROFEN 400 MG TABLET (FP) PO PRN (13:51)
[2019-02-24] MEDS ORDERED: MELATONIN 5 MG TABLETS PO PRN (13:51)
[2019-02-24] MEDS ORDERED: MAGNESIUM HYDROX 2400MG/30ML ORAL SUSPENSION 30 ML CUP PO PRN (13:51)
[2019-02-24] MEDS ORDERED: MAG HYDROX/AL HYDROX/SIMETH 30 ML UNIT-DOSE CUP PO PRN (13:51)
[2019-02-24] MEDS ORDERED: MENTHOL/PHENOL 1 EACH UD MM PRN (13:51)
[2019-02-24] MEDS ORDERED: METHOCARBAMOL 500 MG TABLET PO PRN (13:51)
[2019-02-24] MEDS: GABAPENTIN 300 MG CAPSULE (FP) PO SCH ×2 (15:52→22:18)
[2019-02-24] MEDS: chlordiazePOXIDE HCL 25 MG CAPSULE PO PRN (15:52)
[2019-02-24] MEDS: NICOTINE 21 MG/24 HOURS TOPICAL PATCH TD SCH (15:52)
[2019-02-24] MEDS: busPIRone HCL 10 MG TABLET (FP) PO SCH ×2 (15:52→22:18)
[2019-02-24] MEDS: NICOTINE POLACRILEX 2 MG GUM BUC PRN ×2 (15:55→22:22)
[2019-02-24 16:49] LABS: HEMATOCRIT 34.6 % (35.4-49); HEMOGLOBIN 11.7 GM/dL (11.7-16.9); MCH 28.8 pg (25.7-33.7); MCHC 33.8 g/dl (32.0-35.9); MEAN CELL VOLUME 85.2 fl (80-96); MEAN PLT VOLUME 9.2 fl (7.5-11.1); PLATELET COUNT 186 K/MM3 (134-434); RBC 4.06 M/mm3 (4.00-5.60); WHITE BLOOD COUNT 4.8 K/mm3 (4.0-10.0)
[2019-02-24 17:34] LABS: ALBUMIN 3.3 g/dl (3.4-5.0); ALK PHOS 103 U/L (45-117); ANION GAP 3 MMOL/L (8-16); BILIRUBIN,TOTAL 0.4 mg/dL (0.2-1); BLOOD UREA NITROGEN 10 mg/dL (7-18); CALCIUM 8.3 mg/dL (8.5-10.1); CHLORIDE 107 mmol/L (98-107); CO2 30 mmol/L (21-32); CREATININE 0.8 mg/dL (0.55-1.3); GLUCOSE,RANDOM 104 mg/dL (74-106); POTASSIUM 3.9 mmol/L (3.5-5.1); SGOT/AST 33 U/L (15-37); SGPT/ALT 36 U/L (13-61); SODIUM 140 mmol/L (136-145)
[2019-02-24] MEDS: chlordiazePOXIDE HCL 25 MG CAPSULE PO SCH ×2 (18:35→22:18)
[2019-02-24] MEDS: VITAMINS A AND D TOPICAL OINTMENT 60 GM TUBE TP SCH ×2 (18:36→23:30)
[2019-02-24] MEDS: TRIAMCINOLONE ACET 0.025% OINTMENT 15 GM TUBE TP SCH ×2 (18:37→22:20)
[2019-02-24] MEDS: THIAMINE HCL 100 MG TABLET (FP) PO SCH (22:17)
[2019-02-24] MEDS: diphenhydrAMINE HCL 25 MG CAPSULE (FP) PO PRN (22:18)
[2019-02-25] MEDS: chlordiazePOXIDE HCL 25 MG CAPSULE PO SCH ×4 (05:43→22:18)
[2019-02-25] MEDS: GABAPENTIN 300 MG CAPSULE (FP) PO SCH ×3 (05:43→22:18)
[2019-02-25] MEDS: busPIRone HCL 10 MG TABLET (FP) PO SCH ×3 (05:43→22:18)
[2019-02-25] MEDS: METHADONE HCL 40 MG DISPERSABLE TABLET PO SCH (05:44)
[2019-02-25] MEDS: NICOTINE POLACRILEX 2 MG GUM BUC PRN ×3 (05:45→13:31)
[2019-02-25] MEDS: VITAMINS A AND D TOPICAL OINTMENT 60 GM TUBE TP SCH ×3 (05:55→17:56)
[2019-02-25] MEDS: TRIAMCINOLONE ACET 0.025% OINTMENT 15 GM TUBE TP SCH ×3 (05:55→22:17)
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
[2019-02-25 10:15] LABS: PH,URINE 6.5 (5.0-8.0); URINE APPEARANCE CLEAR; URINE BILIRUBIN NEGATIVE (NEGATIVE); URINE COLOR YELLOW; URINE GLUCOSE (UA) NEGATIVE (NEGATIVE); URINE KETONE NEGATIVE (NEGATIVE); URINE LEUK ESTERASE NEGATIVE (NEGATIVE); URINE NITRITE NEGATIVE (NEGATIVE); URINE PROTEIN NEGATIVE (NEGATIVE)
[2019-02-25] MEDS: NICOTINE 21 MG/24 HOURS TOPICAL PATCH TD SCH (10:15)
[2019-02-25] MEDS: SERTRALINE HCL 50 MG TABLET (FP) PO SCH (10:15)
[2019-02-25] MEDS: PRENATAL VITAMINS W/ FOLIC ACID TABLET (FP) PO SCH (10:15)
[2019-02-25] MEDS: diphenhydrAMINE HCL 25 MG CAPSULE (FP) PO PRN ×2 (10:17→22:22)
--- NOTE | 2019-02-25 11:07 | PN ---
[facility] CIWA - CIWA Score Nausea/Vomitin-No Nausea/No Vomiting Muscle Tremors: None Anxiety: 4-Mod. Anxious/Guarded Agitation: 3 Paroxysmal Sweats: No Perspiration Orientation: 2-Disoriented Date<2 days Tacttile Disturbances: 3-Moderate Itch/Numb/Burn Auditory Disturbances: 0-None Visual Disturbances: 1-Very Mild Sensitivity Headache: 3-Moderate CIWA-Ar Total Score: 16 S Progress Note (SOAP) Subjective: Anxious, Restless, Interrupted Sleep, Itch (Generalized), H/A. Objective: PATIENT A & O X 2 (UNCERTAIN ABOUT CURRENT DAY / DATE). PATIENT OBSERVED AMBULATING ON UNIT. IN NO ACUTE DISTRESS. 02/25/19 11:04 Vital Signs Temperature 97.5 F L 02/25/19 09:11 Pulse Rate 63 02/25/19 09:11 Respiratory Rate 18 02/25/19 09:11 Blood Pressure 112/51 L 02/25/19 09:11 O2 Sat by Pulse Oximetry (%) Laboratory Tests 02/24/19 02/24/19 02/24/19 14:00 14:00 14:00 WBC 4.8 RBC 4.06 Hgb 11.7 Hct 34.6 L MCV 85.2 MCH 28.8 MCHC 33.8 RDW 14.0 Plt Count 186 MPV 9.2 Sodium 140 Potassium 3.9 Chloride 107 Carbon Dioxide 30 Anion Gap 3 L BUN 10 Creatinine 0.8 Creat Clearance w eGFR 109.38 Random Glucose 104 Calcium 8.3 L Total Bilirubin 0.4 AST 33 ALT 36 Alkaline Phosphatase 103 Total Protein 7.0 Albumin 3.3 L Urine Color Urine Appearance Urine pH Ur Specific [place] Urine Protein Urine Glucose (UA) Urine Ketones Urine Blood Urine Nitrite Urine Bilirubin Urine Urobilinogen Ur Leukocyte Esterase HIV 1&2 Antibody Screen Negative HIV P24 Antigen Negative 02/25/19 07:00 WBC RBC Hgb Hct MCV MCH MCHC RDW Plt Count MPV Sodium Potassium Chloride Carbon Dioxide Anion Gap BUN Creatinine Creat Clearance w eGFR Random Glucose Calcium Total Bilirubin AST ALT Alkaline Phosphatase Total Protein Albumin Urine Color Yellow Urine Appearance Clear Urine pH 6.5 D Ur Specific [place] 1.009 L Urine Protein Negative Urine Glucose (UA) Negative Urine Ketones Negative Urine Blood Negative Urine Nitrite Negative Urine Bilirubin Negative Urine Urobilinogen 1.0 Ur Leukocyte Esterase Negative HIV 1&2 Antibody Screen HIV P24 Antigen LABS NOTED. RPR RESULT PENDING. 02/25/19 11:05 Assessment: 02/25/19 11:04 WITHDRAWAL SYMPTOMS. Plan: CONTINUE DETOX. PRN BENADRYL PO FOR GENERALIZED ITCHING.
[2019-02-25] MEDS: chlordiazePOXIDE HCL 25 MG CAPSULE PO PRN (13:30)
[2019-02-25] MEDS: BACITRACIN 0.9 GM PACKET TP SCH (22:17)
[2019-02-25] MEDS: THIAMINE HCL 100 MG TABLET (FP) PO SCH (22:18)
[2019-02-25] MEDS: traZODone HCL 50 MG TABLET (FP) PO SCH (22:19)
[2019-02-26] MEDS: chlordiazePOXIDE HCL 25 MG CAPSULE PO SCH ×2 (06:24→10:35)
[2019-02-26] MEDS: METHADONE HCL 40 MG DISPERSABLE TABLET PO SCH (06:24)
[2019-02-26] MEDS: GABAPENTIN 300 MG CAPSULE (FP) PO SCH ×3 (06:24→22:10)
[2019-02-26] MEDS: busPIRone HCL 10 MG TABLET (FP) PO SCH ×3 (06:24→22:10)
[2019-02-26] MEDS: VITAMINS A AND D TOPICAL OINTMENT 60 GM TUBE TP SCH ×3 (06:25→17:40)
[2019-02-26] MEDS: TRIAMCINOLONE ACET 0.025% OINTMENT 15 GM TUBE TP SCH ×3 (06:27→22:10)
[2019-02-26] MEDS: NICOTINE POLACRILEX 2 MG GUM BUC PRN ×5 (06:29→22:12)
[2019-02-26] MEDS: NICOTINE 21 MG/24 HOURS TOPICAL PATCH TD SCH (10:35)
[2019-02-26] MEDS: SERTRALINE HCL 50 MG TABLET (FP) PO SCH (10:35)
[2019-02-26] MEDS: PRENATAL VITAMINS W/ FOLIC ACID TABLET (FP) PO SCH (10:35)
[2019-02-26] MEDS: BACITRACIN 0.9 GM PACKET TP SCH ×2 (10:36→22:10)
--- NOTE | 2019-02-26 11:29 | PN ---
S CIWA - CIWA Score Nausea/Vomitin-No Nausea/No Vomiting Muscle Tremors: 3 Anxiety: 3 Agitation: 3 Paroxysmal Sweats: 3 Orientation: 0-Oriented Tacttile Disturbances: 0-None Auditory Disturbances: 0-None Visual Disturbances: 0-None Headache: 0-None Present CIWA-Ar Total Score: 12 BHS Progress Note (SOAP) Subjective: sweats tired interrupted sleep Objective: 02/26/19 11:18 Vital Signs Temperature 98.6 F 02/26/19 09:30 Pulse Rate 85 02/26/19 09:30 Respiratory Rate 19 02/26/19 09:30 Blood Pressure 120/66 02/26/19 09:30 O2 Sat by Pulse Oximetry (%) Laboratory Tests 02/24/19 02/24/19 02/24/19 14:00 14:00 14:00 WBC 4.8 RBC 4.06 Hgb 11.7 Hct 34.6 L MCV 85.2 MCH 28.8 MCHC 33.8 RDW 14.0 Plt Count 186 MPV 9.2 Sodium 140 Potassium 3.9 Chloride 107 Carbon Dioxide 30 Anion Gap 3 L BUN 10 Creatinine 0.8 Creat Clearance w eGFR 109.38 Random Glucose 104 Calcium 8.3 L Total Bilirubin 0.4 AST 33 ALT 36 Alkaline Phosphatase 103 Total Protein 7.0 Albumin 3.3 L Urine Color Urine Appearance Urine pH Ur Specific [place] Urine Protein Urine Glucose (UA) Urine Ketones Urine Blood Urine Nitrite Urine Bilirubin Urine Urobilinogen Ur Leukocyte Esterase RPR Titer Nonreactive HIV 1&2 Antibody Screen HIV P24 Antigen 02/24/19 02/25/19 14:00 07:00 WBC RBC Hgb Hct MCV MCH MCHC RDW Plt Count MPV Sodium Potassium Chloride Carbon Dioxide Anion Gap BUN Creatinine Creat Clearance w eGFR Random Glucose Calcium Total Bilirubin AST ALT Alkaline Phosphatase Total Protein Albumin Urine Color Yellow Urine Appearance Clear Urine pH 6.5 D Ur Specific [place] 1.009 L Urine Protein Negative Urine Glucose (UA) Negative Urine Ketones Negative Urine Blood Negative Urine Nitrite Negative Urine Bilirubin Negative Urine Urobilinogen 1.0 Ur Leukocyte Esterase Negative RPR Titer HIV 1&2 Antibody Screen Negative HIV P24 Antigen Negative aaox3 ambulating no acute distress Assessment: 02/26/19 11:19 withdrawal sx Plan: continue detox increase fluids
[2019-02-26] MEDS: chlordiazePOXIDE HCL 25 MG CAPSULE PO PRN (14:05)
[2019-02-26] MEDS ORDERED: chlordiazePOXIDE HCL 10 MG CAPSULE PO PRN (17:00)
[2019-02-26] MEDS: chlordiazePOXIDE HCL 10 MG CAPSULE PO SCH ×2 (17:40→22:10)
[2019-02-26] MEDS: THIAMINE HCL 100 MG TABLET (FP) PO SCH (22:10)
[2019-02-26] MEDS: traZODone HCL 50 MG TABLET (FP) PO SCH (22:11)
[2019-02-27] MEDS: GABAPENTIN 300 MG CAPSULE (FP) PO SCH ×3 (05:51→22:28)
[2019-02-27] MEDS: chlordiazePOXIDE HCL 10 MG CAPSULE PO SCH ×3 (05:51→18:35)
[2019-02-27] MEDS: METHADONE HCL 40 MG DISPERSABLE TABLET PO SCH (05:51)
[2019-02-27] MEDS: busPIRone HCL 10 MG TABLET (FP) PO SCH ×3 (05:51→22:28)
[2019-02-27] MEDS: diphenhydrAMINE HCL 25 MG CAPSULE (FP) PO PRN (05:52)
[2019-02-27] MEDS: VITAMINS A AND D TOPICAL OINTMENT 60 GM TUBE TP SCH ×4 (05:54→18:36)
[2019-02-27] MEDS: TRIAMCINOLONE ACET 0.025% OINTMENT 15 GM TUBE TP SCH (05:54)
[2019-02-27] MEDS: BACITRACIN 0.9 GM PACKET TP SCH ×2 (10:25→22:28)
[2019-02-27] MEDS: PRENATAL VITAMINS W/ FOLIC ACID TABLET (FP) PO SCH (10:25)
[2019-02-27] MEDS: SERTRALINE HCL 50 MG TABLET (FP) PO SCH (10:25)
[2019-02-27] MEDS: NICOTINE 21 MG/24 HOURS TOPICAL PATCH TD SCH (10:25)
[2019-02-27] MEDS: diphenhydrAMINE HCL 50 MG CAPSULE PO PRN (13:32)
[2019-02-27] MEDS: FLUOCINONIDE 0.05% CREAM (15 GM TUBE) TP SCH ×2 (13:34→22:30)
[2019-02-27] MEDS: NICOTINE POLACRILEX 2 MG GUM BUC PRN ×2 (13:36→22:32)
--- NOTE | 2019-02-27 15:12 | PN ---
S CIWA - CIWA Score Nausea/Vomitin-No Nausea/No Vomiting Muscle Tremors: None Anxiety: 4-Mod. Anxious/Guarded Agitation: 3 Paroxysmal Sweats: No Perspiration Orientation: 2-Disoriented Date<2 days Tacttile Disturbances: 3-Moderate Itch/Numb/Burn Auditory Disturbances: 0-None Visual Disturbances: 0-None Headache: 0-None Present CIWA-Ar Total Score: 12 BHS Progress Note (SOAP) Subjective: Anxious, Restless, Itching. Patient reports history of Chronic Severe Generalized Form of Eczema that affects bilateral upper and lower extremities, back, and neck. Objective: PATIENT A & O X 2 (UNCERTAIN ABOUT CURRENT DAY / DATE). PATIENT OBSERVED AMBULATING ON UNIT. IN NO ACUTE DISTRESS. ERYTHEMATOUS PATCHES NOTED ON BILATERAL ARMS AND LEGS, NECK, AND BACK. PATIENT REPORTS THAT AFFECTED AREAS FEEL VERY ITCHY. SEVERAL SMALL BREAKS IN SKIN NOTED IN AREAS WHERE PATIENT HAS BEEN SCRATCHING. NO DISCHARGE NOTED AT AFFECTED SITES. 02/27/19 15:07 Vital Signs Temperature 98.2 F 02/27/19 14:17 Pulse Rate 75 02/27/19 14:17 Respiratory Rate 18 02/27/19 14:17 Blood Pressure 133/70 02/27/19 14:17 O2 Sat by Pulse Oximetry (%) Laboratory Tests 02/24/19 02/24/19 02/24/19 14:00 14:00 14:00 WBC 4.8 RBC 4.06 Hgb 11.7 Hct 34.6 L MCV 85.2 MCH 28.8 MCHC 33.8 RDW 14.0 Plt Count 186 MPV 9.2 Sodium 140 Potassium 3.9 Chloride 107 Carbon Dioxide 30 Anion Gap 3 L BUN 10 Creatinine 0.8 Creat Clearance w eGFR 109.38 Random Glucose 104 Calcium 8.3 L Total Bilirubin 0.4 AST 33 ALT 36 Alkaline Phosphatase 103 Total Protein 7.0 Albumin 3.3 L Urine Color Urine Appearance Urine pH Ur Specific [place] Urine Protein Urine Glucose (UA) Urine Ketones Urine Blood Urine Nitrite Urine Bilirubin Urine Urobilinogen Ur Leukocyte Esterase RPR Titer Nonreactive HIV 1&2 Antibody Screen HIV P24 Antigen 02/24/19 02/25/19 14:00 07:00 WBC RBC Hgb Hct MCV MCH MCHC RDW Plt Count MPV Sodium Potassium Chloride Carbon Dioxide Anion Gap BUN Creatinine Creat Clearance w eGFR Random Glucose Calcium Total Bilirubin AST ALT Alkaline Phosphatase Total Protein Albumin Urine Color Yellow Urine Appearance Clear Urine pH 6.5 D Ur Specific [place] 1.009 L Urine Protein Negative Urine Glucose (UA) Negative Urine Ketones Negative Urine Blood Negative Urine Nitrite Negative Urine Bilirubin Negative Urine Urobilinogen 1.0 Ur Leukocyte Esterase Negative RPR Titer HIV 1&2 Antibody Screen Negative HIV P24 Antigen Negative LABS NOTED. Assessment: 02/27/19 15:10 WITHDRAWAL SYMPTOMS. Plan: CONTINUE DETOX. INCREASE DAILY PO FLUID / WATER INTAKE. PRN BENADRYL PO FOR SEVERE ITCHING AFFECTING SEVERAL BODY PARTS. PATIENT REPORTS POOR EFFECT FROM TRIAMCINOLONE CREAM. CHANGE TO LIDEX CREAM FOR AFFECTED AREAS. TOPICAL BACITRACIN FOR BREAKS IN SKIN.
[2019-02-27] MEDS: THIAMINE HCL 100 MG TABLET (FP) PO SCH (22:28)
[2019-02-27] MEDS: traZODone HCL 50 MG TABLET (FP) PO SCH (22:28)
[2019-02-28] MEDS: METHADONE HCL 40 MG DISPERSABLE TABLET PO SCH (05:49)
[2019-02-28] MEDS: chlordiazePOXIDE HCL 10 MG CAPSULE PO SCH ×2 (05:50→16:50)
[2019-02-28] MEDS: GABAPENTIN 300 MG CAPSULE (FP) PO SCH ×3 (05:50→22:19)
[2019-02-28] MEDS: busPIRone HCL 10 MG TABLET (FP) PO SCH ×3 (05:50→22:19)
[2019-02-28] MEDS: VITAMINS A AND D TOPICAL OINTMENT 60 GM TUBE TP SCH ×3 (05:54→23:31)
[2019-02-28] MEDS: NICOTINE POLACRILEX 2 MG GUM BUC PRN ×2 (05:54→16:50)
[2019-02-28] MEDS: NICOTINE 21 MG/24 HOURS TOPICAL PATCH TD SCH (10:50)
[2019-02-28] MEDS: PRENATAL VITAMINS W/ FOLIC ACID TABLET (FP) PO SCH (10:50)
[2019-02-28] MEDS: BACITRACIN 0.9 GM PACKET TP SCH ×2 (10:50→22:19)
[2019-02-28] MEDS: SERTRALINE HCL 50 MG TABLET (FP) PO SCH (10:50)
[2019-02-28] MEDS ORDERED: diphenhydrAMINE HCL 25 MG CAPSULE (FP) PO ONE (10:53)
[2019-02-28] MEDS: diphenhydrAMINE HCL 25 MG CAPSULE (FP) PO PRN (10:54)
[2019-02-28] MEDS: FLUOCINONIDE 0.05% CREAM (15 GM TUBE) TP SCH ×2 (11:53→22:21)
--- NOTE | 2019-02-28 15:21 | PN ---
S CIWA - CIWA Score Nausea/Vomitin-No Nausea/No Vomiting Muscle Tremors: None Anxiety: 1-Mildly Anxious Agitation: 1-Slight > Activity Paroxysmal Sweats: 1-Minimal Palms Moist Orientation: 0-Oriented Tacttile Disturbances: 0-None Auditory Disturbances: 0-None Visual Disturbances: 0-None Headache: 0-None Present CIWA-Ar Total Score: 3 BHS Progress Note (SOAP) Subjective: pt to on alcohol/benzo detox protocol- doing well O: Vital Signs - 24 hr 02/27/19 02/27/19 02/28/19 17:14 21:26 00:30 Temperature 96.3 F L 98 F Pulse Rate 72 70 Respiratory 18 18 18 Rate Blood Pressure 109/58 L 120/63 02/28/19 02/28/19 02/28/19 03:30 06:00 11:18 Temperature 96.6 F L 98.2 F Pulse Rate 75 76 Respiratory 18 18 18 Rate Blood Pressure 113/85 130/69 02/28/19 14:53 Temperature 98.1 F Pulse Rate 77 Respiratory 18 Rate Blood Pressure 114/63 Laboratory Tests 02/24/19 02/24/19 02/24/19 14:00 14:00 14:00 WBC 4.8 RBC 4.06 Hgb 11.7 Hct 34.6 L MCV 85.2 MCH 28.8 MCHC 33.8 RDW 14.0 Plt Count 186 MPV 9.2 Sodium 140 Potassium 3.9 Chloride 107 Carbon Dioxide 30 Anion Gap 3 L BUN 10 Creatinine 0.8 Creat Clearance w eGFR 109.38 Random Glucose 104 Calcium 8.3 L Total Bilirubin 0.4 AST 33 ALT 36 Alkaline Phosphatase 103 Total Protein 7.0 Albumin 3.3 L Urine Color Urine Appearance Urine pH Ur Specific [place] Urine Protein Urine Glucose (UA) Urine Ketones Urine Blood Urine Nitrite Urine Bilirubin Urine Urobilinogen Ur Leukocyte Esterase RPR Titer Nonreactive HIV 1&2 Antibody Screen HIV P24 Antigen 02/24/19 02/25/19 14:00 07:00 WBC RBC Hgb Hct MCV MCH MCHC RDW Plt Count MPV Sodium Potassium Chloride Carbon Dioxide Anion Gap BUN Creatinine Creat Clearance w eGFR Random Glucose Calcium Total Bilirubin AST ALT Alkaline Phosphatase Total Protein Albumin Urine Color Yellow Urine Appearance Clear Urine pH 6.5 D Ur Specific [place] 1.009 L Urine Protein Negative Urine Glucose (UA) Negative Urine Ketones Negative Urine Blood Negative Urine Nitrite Negative Urine Bilirubin Negative Urine Urobilinogen 1.0 Ur Leukocyte Esterase Negative RPR Titer HIV 1&2 Antibody Screen Negative HIV P24 Antigen Negative a/p: continue alcohol/benzo detox protocol- MAT methadone would like to go to rehab for continued care
[2019-02-28] MEDS: hydrOXYzine PAMOATE 25 MG CAPSULE (FP) PO PRN (16:49)
[2019-02-28] MEDS: THIAMINE HCL 100 MG TABLET (FP) PO SCH (22:18)
[2019-02-28] MEDS: diphenhydrAMINE HCL 50 MG CAPSULE PO PRN (22:21)
[2019-02-28] MEDS: traZODone HCL 50 MG TABLET (FP) PO SCH (22:21)
[2019-03-01] MEDS: busPIRone HCL 10 MG TABLET (FP) PO SCH ×3 (05:49→23:42)
[2019-03-01] MEDS: METHADONE HCL 40 MG DISPERSABLE TABLET PO SCH (05:49)
[2019-03-01] MEDS: GABAPENTIN 300 MG CAPSULE (FP) PO SCH ×3 (05:49→23:42)
[2019-03-01] MEDS: VITAMINS A AND D TOPICAL OINTMENT 60 GM TUBE TP SCH ×3 (06:12→23:57)
[2019-03-01] MEDS: SERTRALINE HCL 50 MG TABLET (FP) PO SCH (10:22)
[2019-03-01] MEDS: PRENATAL VITAMINS W/ FOLIC ACID TABLET (FP) PO SCH (10:22)
[2019-03-01] MEDS: NICOTINE 21 MG/24 HOURS TOPICAL PATCH TD SCH (10:23)
[2019-03-01] MEDS: FLUOCINONIDE 0.05% CREAM (15 GM TUBE) TP SCH ×2 (10:23→23:43)
[2019-03-01] MEDS: BACITRACIN 0.9 GM PACKET TP SCH ×2 (10:23→23:43)
[2019-03-01] MEDS: hydrOXYzine PAMOATE 25 MG CAPSULE (FP) PO PRN (10:25)
[2019-03-01] MEDS: NICOTINE POLACRILEX 2 MG GUM BUC PRN ×3 (10:26→23:44)
--- NOTE | 2019-03-01 15:08 | PN ---
[facility] CIWA - CIWA Score Nausea/Vomitin-No Nausea/No Vomiting Muscle Tremors: None Anxiety: 1-Mildly Anxious Agitation: 0-Normal Activity Paroxysmal Sweats: No Perspiration Orientation: 0-Oriented Tacttile Disturbances: 0-None Auditory Disturbances: 0-None Visual Disturbances: 0-None Headache: 1-Very Mild CIWA-Ar Total Score: 2 S Progress Note (SOAP) Subjective: i have pain all over my body. Objective: 03/01/19 15:10 AOX3, no distress Full rom Ambulating in the unit Assessment: 03/01/19 15:10 Vital Signs 03/01/19 14:41 Temperature 97.9 F Pulse Rate 85 Respiratory 18 Rate Blood Pressure 145/66 Laboratory Last Values WBC 4.8 K/mm3 (4.0-10.0) 02/24/19 14:00 RBC 4.06 M/mm3 (4.00-5.60) 02/24/19 14:00 Hgb 11.7 GM/dL (11.7-16.9) 02/24/19 14:00 Hct 34.6 % (35.4-49) L 02/24/19 14:00 MCV 85.2 fl (80-96) 02/24/19 14:00 MCH 28.8 pg (25.7-33.7) 02/24/19 14:00 MCHC 33.8 g/dl (32.0-35.9) 02/24/19 14:00 RDW 14.0 % (11.9-15.9) 02/24/19 14:00 Plt Count 186 K/MM3 (134-434) 02/24/19 14:00 MPV 9.2 fl (7.5-11.1) 02/24/19 14:00 Sodium 140 mmol/L (136-145) 02/24/19 14:00 Potassium 3.9 mmol/L (3.5-5.1) 02/24/19 14:00 Chloride 107 mmol/L (98-107) 02/24/19 14:00 Carbon Dioxide 30 mmol/L (21-32) 02/24/19 14:00 Anion Gap 3 MMOL/L (8-16) L 02/24/19 14:00 BUN 10 mg/dL (7-18) 02/24/19 14:00 Creatinine 0.8 mg/dL (0.55-1.3) 02/24/19 14:00 Creat Clearance w eGFR 109.38 (>60) 02/24/19 14:00 Random Glucose 104 mg/dL (74-106) 02/24/19 14:00 Calcium 8.3 mg/dL (8.5-10.1) L 02/24/19 14:00 Total Bilirubin 0.4 mg/dL (0.2-1) 02/24/19 14:00 AST 33 U/L (15-37) 02/24/19 14:00 ALT 36 U/L (13-61) 02/24/19 14:00 Alkaline Phosphatase 103 U/L (45-117) 02/24/19 14:00 Total Protein 7.0 g/dl (6.4-8.2) 02/24/19 14:00 Albumin 3.3 g/dl (3.4-5.0) L 02/24/19 14:00 Urine Color Yellow 02/25/19 07:00 Urine Appearance Clear 02/25/19 07:00 Urine pH 6.5 (5.0-8.0) D 02/25/19 07:00 Ur Specific [place] 1.009 (1.010-1.035) L 02/25/19 07:00 Urine Protein Negative (NEGATIVE) 02/25/19 07:00 Urine Glucose (UA) Negative (NEGATIVE) 02/25/19 07:00 Urine Ketones Negative (NEGATIVE) 02/25/19 07:00 Urine Blood Negative (NEGATIVE) 02/25/19 07:00 Urine Nitrite Negative (NEGATIVE) 02/25/19 07:00 Urine Bilirubin Negative (NEGATIVE) 02/25/19 07:00 Urine Urobilinogen 1.0 mg/dL (0.2-1.0) 02/25/19 07:00 Ur Leukocyte Esterase Negative (NEGATIVE) 02/25/19 07:00 RPR Titer Nonreactive (NONREACTIVE) 02/24/19 14:00 HIV 1&2 Antibody Screen Negative 02/24/19 14:00 HIV P24 Antigen Negative 02/24/19 14:00 labs reviewed Plan: Detox completed Pt expresses his desire to go to rehab from detox counselor to talk to pt about possible discharge
[2019-03-01] MEDS: traZODone HCL 50 MG TABLET (FP) PO SCH (23:42)
[2019-03-01] MEDS: THIAMINE HCL 100 MG TABLET (FP) PO SCH (23:43)
[2019-03-02] MEDS: VITAMINS A AND D TOPICAL OINTMENT 60 GM TUBE TP SCH ×3 (00:01→14:36)
[2019-03-02] MEDS: GABAPENTIN 300 MG CAPSULE (FP) PO SCH ×2 (05:06→14:38)
[2019-03-02] MEDS: busPIRone HCL 10 MG TABLET (FP) PO SCH ×2 (05:06→14:38)
[2019-03-02] MEDS: METHADONE HCL 40 MG DISPERSABLE TABLET PO SCH (05:06)
[2019-03-02] MEDS: NICOTINE POLACRILEX 2 MG GUM BUC PRN (05:13)
[2019-03-02] MEDS: BACITRACIN 0.9 GM PACKET TP SCH (10:42)
[2019-03-02] MEDS: FLUOCINONIDE 0.05% CREAM (15 GM TUBE) TP SCH (10:42)
[2019-03-02] MEDS: NICOTINE 21 MG/24 HOURS TOPICAL PATCH TD SCH (10:43)
[2019-03-02] MEDS: PRENATAL VITAMINS W/ FOLIC ACID TABLET (FP) PO SCH (10:43)
[2019-03-02] MEDS: SERTRALINE HCL 50 MG TABLET (FP) PO SCH (10:43)
--- NOTE | 2019-03-02 16:19 | PN ---
S CIWA - CIWA Score Nausea/Vomitin-No Nausea/No Vomiting Muscle Tremors: None Anxiety: 3 Agitation: 0-Normal Activity Paroxysmal Sweats: 2 Orientation: 0-Oriented Tacttile Disturbances: 0-None Auditory Disturbances: 0-None Visual Disturbances: 0-None Headache: 0-None Present CIWA-Ar Total Score: 5 BHS Progress Note (SOAP) Subjective: Sweating, chills, tremor. Patient stated that he is sweating and shaking too much. Patient stated, "I think they tapered me off too quickly, I want rehab, I don't want to drink again." Objective: 03/02/19 16:18 Last Vital Signs Temp Pulse Resp BP Pulse Ox 97.9 F 63 18 105/60 03/02/19 14:30 03/02/19 14:30 03/02/19 14:30 03/02/19 14:30 Laboratory Tests 02/24/19 02/24/19 02/24/19 14:00 14:00 14:00 WBC 4.8 RBC 4.06 Hgb 11.7 Hct 34.6 L MCV 85.2 MCH 28.8 MCHC 33.8 RDW 14.0 Plt Count 186 MPV 9.2 Sodium 140 Potassium 3.9 Chloride 107 Carbon Dioxide 30 Anion Gap 3 L BUN 10 Creatinine 0.8 Creat Clearance w eGFR 109.38 Random Glucose 104 Calcium 8.3 L Total Bilirubin 0.4 AST 33 ALT 36 Alkaline Phosphatase 103 Total Protein 7.0 Albumin 3.3 L Urine Color Urine Appearance Urine pH Ur Specific [place] Urine Protein Urine Glucose (UA) Urine Ketones Urine Blood Urine Nitrite Urine Bilirubin Urine Urobilinogen Ur Leukocyte Esterase RPR Titer Nonreactive HIV 1&2 Antibody Screen HIV P24 Antigen 02/24/19 02/25/19 14:00 07:00 WBC RBC Hgb Hct MCV MCH MCHC RDW Plt Count MPV Sodium Potassium Chloride Carbon Dioxide Anion Gap BUN Creatinine Creat Clearance w eGFR Random Glucose Calcium Total Bilirubin AST ALT Alkaline Phosphatase Total Protein Albumin Urine Color Yellow Urine Appearance Clear Urine pH 6.5 D Ur Specific [place] 1.009 L Urine Protein Negative Urine Glucose (UA) Negative Urine Ketones Negative Urine Blood Negative Urine Nitrite Negative Urine Bilirubin Negative Urine Urobilinogen 1.0 Ur Leukocyte Esterase Negative RPR Titer HIV 1&2 Antibody Screen Negative HIV P24 Antigen Negative Labs reviewed Assessment: 03/02/19 16:19 Withdrawal symptoms Plan: Continue detox Encouraged PO water hydration Encouraged vistaril prn (ordered); not candidate for clonidine due to lower normal b/p
[2019-03-02] MEDS ORDERED: hydrOXYzine PAMOATE 50 MG CAPSULE (FP) PO PRN ×2 (16:20→16:24)
--- NOTE | 2019-03-02 17:34 | DS ---
[facility] Detox Discharge Summary Admission Date: 02/24/19 Discharge Date: 03/02/19 - History Present History: Alcohol Dependence, Opioid Dependence, Sedative Dependence ( anxiolytics), MMTP Additional Comments: Patient with alcohol and Xanax withdrawal. Pertinent Past History: Patient with alcohol and Xanax use disorder. Patient on Methadone Maintenance and continues to relapse w/ heroin. - Physical Exam Results Vital Signs: Vital Signs Temperature 97.9 F 03/02/19 14:30 Pulse Rate 63 03/02/19 14:30 Respiratory Rate 18 03/02/19 14:30 Blood Pressure 105/60 03/02/19 14:30 O2 Sat by Pulse Oximetry (%) Pertinent Admission Physical Exam Findings: Admitted for detox with alcohol and xanax withdrawal symptoms. Relapsing with heroin while on Methadone Maintenance. Methadone dose verified. Laboratory Last Values WBC 4.8 K/mm3 (4.0-10.0) 02/24/19 14:00 RBC 4.06 M/mm3 (4.00-5.60) 02/24/19 14:00 Hgb 11.7 GM/dL (11.7-16.9) 02/24/19 14:00 Hct 34.6 % (35.4-49) L 02/24/19 14:00 MCV 85.2 fl (80-96) 02/24/19 14:00 MCH 28.8 pg (25.7-33.7) 02/24/19 14:00 MCHC 33.8 g/dl (32.0-35.9) 02/24/19 14:00 RDW 14.0 % (11.9-15.9) 02/24/19 14:00 Plt Count 186 K/MM3 (134-434) 02/24/19 14:00 MPV 9.2 fl (7.5-11.1) 02/24/19 14:00 Sodium 140 mmol/L (136-145) 02/24/19 14:00 Potassium 3.9 mmol/L (3.5-5.1) 02/24/19 14:00 Chloride 107 mmol/L (98-107) 02/24/19 14:00 Carbon Dioxide 30 mmol/L (21-32) 02/24/19 14:00 Anion Gap 3 MMOL/L (8-16) L 02/24/19 14:00 BUN 10 mg/dL (7-18) 02/24/19 14:00 Creatinine 0.8 mg/dL (0.55-1.3) 02/24/19 14:00 Creat Clearance w eGFR 109.38 (>60) 02/24/19 14:00 Random Glucose 104 mg/dL (74-106) 02/24/19 14:00 Calcium 8.3 mg/dL (8.5-10.1) L 02/24/19 14:00 Total Bilirubin 0.4 mg/dL (0.2-1) 02/24/19 14:00 AST 33 U/L (15-37) 02/24/19 14:00 ALT 36 U/L (13-61) 02/24/19 14:00 Alkaline Phosphatase 103 U/L (45-117) 02/24/19 14:00 Total Protein 7.0 g/dl (6.4-8.2) 02/24/19 14:00 Albumin 3.3 g/dl (3.4-5.0) L 02/24/19 14:00 Urine Color Yellow 02/25/19 07:00 Urine Appearance Clear 02/25/19 07:00 Urine pH 6.5 (5.0-8.0) D 02/25/19 07:00 Ur Specific [place] 1.009 (1.010-1.035) L 02/25/19 07:00 Urine Protein Negative (NEGATIVE) 02/25/19 07:00 Urine Glucose (UA) Negative (NEGATIVE) 02/25/19 07:00 Urine Ketones Negative (NEGATIVE) 02/25/19 07:00 Urine Blood Negative (NEGATIVE) 02/25/19 07:00 Urine Nitrite Negative (NEGATIVE) 02/25/19 07:00 Urine Bilirubin Negative (NEGATIVE) 02/25/19 07:00 Urine Urobilinogen 1.0 mg/dL (0.2-1.0) 02/25/19 07:00 Ur Leukocyte Esterase Negative (NEGATIVE) 02/25/19 07:00 RPR Titer Nonreactive (NONREACTIVE) 02/24/19 14:00 HIV 1&2 Antibody Screen Negative 02/24/19 14:00 HIV P24 Antigen Negative 02/24/19 14:00 Labs reviewed. - Treatment Hospital Course: Detox Protocol Followed, Detoxed Safely, Responded well, Discharged Condition Good Patient has Accepted a Rehab Referral to: Declined rehab. Will return to [facility]. Has Narcan access. - Medication Discharge Medications: Ambulatory Orders Sertraline HCl [Zoloft -] 50 mg PO DAILY 01/19/16 Buspirone HCl [Buspar -] 10 mg PO TID #90 tablet 08/13/18 Gabapentin [Neurontin -] 300 mg PO TID #90 cap 08/13/18 Triamcinolone 0.025% Ointment [Aristocort 0.025% Ointment -] 1 applic TP TID - Diagnosis (1) PTSD (post-traumatic stress disorder) Current Visit: Yes Status: Chronic (2) Alcohol dependence with uncomplicated withdrawal Current Visit: Yes Status: Acute (3) Insomnia Current Visit: No Status: Acute Qualifiers: Insomnia type: unspecified Qualified Code(s): G47.00 - Insomnia, unspecified (4) Sedative hypnotic or anxiolytic dependence Current Visit: Yes Status: Acute (5) Asthma Current Visit: No Status: Chronic Qualifiers: Asthma severity: mild Asthma persistence: intermittent Asthma complication type: with status asthmaticus Qualified Code(s): J45.22 - Mild intermittent asthma with status asthmaticus (6) Cocaine dependence Current Visit: No Status: Chronic (7) Eczema Current Visit: Yes Status: Chronic Qualifiers: Eczema type: intrinsic Qualified Code(s): L20.84 - Intrinsic (allergic) eczema (8) Hepatitis C Current Visit: No Status: Chronic Qualifiers: Viral hepatitis chronicity: chronic Hepatic coma status: without hepatic coma Qualified Code(s): B18.2 - Chronic viral hepatitis C (9) Methadone maintenance therapy patient Current Visit: Yes Status: Chronic (10) Nicotine dependence Current Visit: Yes Status: Chronic Qualifiers: Nicotine product type: cigarettes Substance use status: in withdrawal Qualified Code(s): F17.213 - Nicotine dependence, cigarettes, with withdrawal (11) PTSD (post-traumatic stress disorder) Current Visit: No Status: Chronic (12) History of seizure Current Visit: No Status: Suspected - AMA Did Patient Leave Against Medical Advice: No
[2019-03-02 17:44] VITALS: BP 119/63; PULSE 61; TEMP 98.2
== END 2019-03-02 17:35 | disposition home or self-care (01) | DRG 773 ==
LOC: YASAS 10:46 → Y6N 14:29
PROVIDERS: ADMIT Surgery; ATTEND Surgery
PROC: HZ2ZZZZ Detoxification Services for Substance Abuse Treatment (ICD-10-PCS; principal; 2019-02-24)
DX: F10.230 Alcohol dependence with withdrawal, uncomplicated (principal); F11.20 Opioid dependence, uncomplicated; F13.20 Sedative, hypnotic or anxiolytic dependence, uncomplicated; F14.20 Cocaine dependence, uncomplicated; F17.213 Nicotine dependence, cigarettes, with withdrawal; F43.10 Post-traumatic stress disorder, unspecified; F31.81 Bipolar II disorder; F19.24 Other psychoactive substance dependence with psychoactive substance-induced mood disorder; F19.282 Other psychoactive substance dependence with psychoactive substance-induced sleep disorder; J45.22 Mild intermittent asthma with status asthmaticus; G47.00 Insomnia, unspecified; L20.84 Intrinsic (allergic) eczema; B18.2 Chronic viral hepatitis C; R63.4 Abnormal weight loss; Z86.69 Personal history of other diseases of the nervous system and sense organs
CPT/HCPCS: 36415; 80053; 81003; 85027; 86593; 87389

== ENCOUNTER 2019-03-19 10:43 | Inpatient (IN) | payer OTHER ==
[2019-03-19 11:11] VITALS: BMI 29.0
--- NOTE | 2019-03-19 12:36 | HP ---
CIWA Score Nausea/Vomitin-No Nausea/No Vomiting Muscle Tremors: 3 Anxiety: 2 Agitation: 2 Paroxysmal Sweats: No Perspiration Orientation: 0-Oriented Tacttile Disturbances: 3-Moderate Itch/Numb/Burn Auditory Disturbances: 0-None Visual Disturbances: 0-None Headache: 2-Mild CIWA-Ar Total Score: 12 - Admission Criteria OASAS Guidelines: Admission for Medically Managed Detox: Requires at least one of the followin. CIWA greater than 12 2. Seizures within the past 24 hours 3. Delirium tremens within the past 24 hours 4. Hallucinations within the past 24 hours 5. Acute intervention needed for co occurring medical disorder 6. Acute intervention needed for co occurring psychiatric disorder 7. Severe withdrawal that cannot be handled at a lower level of care (continued vomiting, continued diarrhea, abnormal vital signs) requiring intravenous medication and/or fluids 8. Patient presents the following: CIWA greater than 12 Admission Criteria Met: Admission criteria met Admission ROS BHS - HPI Chief Complaint: here for alcohol detox, in a MAT methadone program 38 yo who was discharged from here on 03/02/19 after completing detox- states that he relapsed after leaving here b/c he did not get a rehab bed. h/o eczema takes a cream/a and D ointment. PCP- pt does not recall name Heroin- 3 bags IV upper arm, h/o OD long time alcohol- 3 6 packs a day, no h/o DT's or seizures cocaine- a little benzo- 3-4 sticks of xanax and klonopin DUR- no recent meds utox: pos for cocaine, Fen, Mop, MTD, BZO Allergies/Adverse Reactions: Allergies Allergy/AdvReac Type Severity Reaction Status Date / Time No Known Allergies Allergy Verified 03/19/19 10:56 - Ebola screening Have you traveled outside of the country in the last 21 days: No (N) Have you had contact with anyone from an Ebola affected area: No Do you have a fever: No Patient History - Patient Medical History Hx Anemia: No Hx Asthma: No Hx Chronic Obstructive Pulmonary Disease (COPD): No Hx Cancer: No Hx Cardiac Disorders: No Hx Congestive Heart Failure: No Hx Hypertension: No Hx Hypercholesterolemia: No Hx Pacemaker: No HX Cerebrovascular Accident: No Hx Seizures: No Hx Dementia: No Hx Diabetes: No Hx Gastrointestinal Disorders: No Hx Liver Disease: Yes (Hep C) Hx Genitourinary Disorders: No Hx Sexually Transmitted Disorders: No Hx Renal Disease (ESRD): No Hx Thyroid Disease: No Hx Human Immunodeficiency Virus (HIV): No (Negative 01/28 negative) Hx Hepatitis C: Yes (Not on medication) Hx Depression: Yes Hx Suicide Attempt: No Hx Bipolar Disorder: Yes Hx Schizophrenia: No - Patient Surgical History Past Surgical History: No Hx Neurologic Surgery: No Hx Cataract Extraction: No Hx Cardiac Surgery: No Hx Lung Surgery: No Hx Breast Surgery: No Hx Breast Biopsy: No Hx Abdominal Surgery: No Hx Appendectomy: No Hx Cholecystectomy: No Hx Genitourinary Surgery: No Hx Section: No Hx Orthopedic Surgery: No Anesthesia Reaction: No - PPD History Date: 02/05/19 Results: 0 mm - Smoking Cessation Smoking history: Current every day smoker Have you smoked in the past 12 months: Yes Aproximately how many cigarettes per day: 20 Cigars Per Day: 0 Hx Chewing Tobacco Use: No Initiated information on smoking cessation: Yes 'Breaking Loose' booklet given: 03/19/19 - Substances abused Alcohol Substance route: Oral Frequency: Daily Amount used: 1 pt. vodka, 7 cans beer (16 oz) Age of first use: 17 Date of last use: 03/18/19 Alprazolam (Xanax) Substance route: Oral Frequency: Daily Amount used: 6mg Age of first use: 25 Date of last use: 03/18/19 Heroin Substance route: Injection Frequency: Daily Amount used: 3 to 4 bags Age of first use: 20 Date of last use: 03/18/19 Admission Physical Exam S - Vital Signs Vital Signs: Vital Signs - 24 hr 03/19/19 10:58 Temperature 97.4 F L Pulse Rate 64 Respiratory 18 Rate Blood Pressure 120/75 - Physical General Appearance: Yes: Disheveled (strong malodorous odor), Other (pt very sleepy- says has not slept in two days b/c of homelessness) HEENTM: Yes: Within Normal Limits, Hearing grossly Normal, Normal ENT Inspection , Normocephalic, Normal Voice, Pharynx Normal Respiratory: Yes: Lungs Clear Cardiology: Yes: Within Normal Limits, S1, S2 Abdominal: Yes: Within Normal Limits, Normal Bowel Sounds Back: Yes: Within Normal Limits Musculoskeletal: Yes: Within Normal Limits, full range of Motion, Other (pt tired and sleepu) Extremities: Yes: Within Normal Limits, Other (eczematous lesions all over extre ) Neurological: Yes: Other (sleepy) Integumentary: Yes: Within Normal Limits, Track Chaudhary, Other (scaly, dry patches , bleeding areas over extensive parts of body) Lymphatic: Yes: Within Normal Limits - Diagnostic (1) Alcohol dependence with uncomplicated withdrawal Current Visit: No Status: Acute (2) Eczema Current Visit: No Status: Chronic Qualifiers: Eczema type: intrinsic Qualified Code(s): L20.84 - Intrinsic (allergic) eczema (3) Methadone maintenance therapy patient Current Visit: No Status: Chronic Comment: 50 MG DAILY VERIFICAITON PENDING (4) Nicotine dependence Current Visit: No Status: Chronic Qualifiers: Nicotine product type: cigarettes Substance use status: in withdrawal Qualified Code(s): F17.213 - Nicotine dependence, cigarettes, with withdrawal Breathalyzer - Breathalyzer Breathalyzer: 0 Urine Drug Screen - Test Device Lot number: [id number] Expiration date: 10/11/20 - Control Is test valid?: Yes - Results Drug screen NEGATIVE: No Urine drug screen results: RICH-Cocaine, FEN-Fentanyl, MOP-Opiates, MTD-Methadone , BZO-Benzodiazepines Inpatient Rehab Admission - Rehab Decision to Admit Inpatient rehab admission?: No
[2019-03-19] MEDS ORDERED: MENTHOL/PHENOL 1 EACH UD MM PRN (12:51)
[2019-03-19] MEDS ORDERED: MAG HYDROX/AL HYDROX/SIMETH 30 ML UNIT-DOSE CUP PO PRN (12:51)
[2019-03-19] MEDS ORDERED: ACETAMINOPHEN 325 MG TABLET (FP) PO PRN ×2 (12:51)
[2019-03-19] MEDS ORDERED: MELATONIN 5 MG TABLETS PO PRN (12:51)
[2019-03-19] MEDS ORDERED: IBUPROFEN 400 MG TABLET (FP) PO PRN (12:51)
[2019-03-19] MEDS ORDERED: MAGNESIUM CITRATE 300 ML BOTTLE PO PRN (12:51)
[2019-03-19] MEDS ORDERED: BISMUTH SUBSALICYLATE 262 MG/15 ML BTL PO PRN (12:51)
[2019-03-19] MEDS ORDERED: MAGNESIUM HYDROX 2400MG/30ML ORAL SUSPENSION 30 ML CUP PO PRN (12:51)
--- NOTE | 2019-03-19 14:32 | PN ---
BHS Progress Note Note: vomited x 1 undigested food zofran 8 mg sl x 1
[2019-03-19] MEDS ORDERED: ONDANSETRON *ODT* 4 MG TABLET SL ONE (14:45)
[2019-03-19] MEDS: TRIAMCINOLONE ACET 0.025% OINTMENT 15 GM TUBE TP SCH ×2 (15:00→22:20)
[2019-03-19] MEDS: chlordiazePOXIDE HCL 10 MG CAPSULE PO PRN (17:04)
[2019-03-19] MEDS: VITAMINS A AND D TOPICAL OINTMENT 60 GM TUBE TP SCH (17:05)
[2019-03-19 17:35] LABS: HEMATOCRIT 38.1 % (35.4-49); HEMOGLOBIN 12.6 GM/dL (11.7-16.9); MCH 27.7 pg (25.7-33.7); MCHC 32.9 g/dl (32.0-35.9); MEAN CELL VOLUME 84.1 fl (80-96); PLATELET COUNT 209 K/MM3 (134-434); RBC 4.53 M/mm3 (4.00-5.60); RDW 14.3 % (11.9-15.9); WHITE BLOOD COUNT 5.2 K/mm3 (4.0-10.0)
[2019-03-19 17:38] LABS: URINE APPEARANCE CLEAR; URINE BILIRUBIN NEGATIVE (NEGATIVE); URINE COLOR YELLOW; URINE GLUCOSE (UA) NEGATIVE (NEGATIVE); URINE KETONE NEGATIVE (NEGATIVE); URINE LEUK ESTERASE NEGATIVE (NEGATIVE); URINE NITRITE NEGATIVE (NEGATIVE); URINE PROTEIN NEGATIVE (NEGATIVE)
[2019-03-19 17:40] LABS: ALBUMIN 3.9 g/dl (3.4-5.0); BILIRUBIN,TOTAL 0.7 mg/dL (0.2-1); CALCIUM 9.1 mg/dL (8.5-10.1); CREATININE 0.8 mg/dL (0.55-1.3); TOT PROT 7.6 g/dl (6.4-8.2)
[2019-03-19] MEDS: THIAMINE HCL 100 MG TABLET (FP) PO SCH (22:19)
[2019-03-19] MEDS: chlordiazePOXIDE HCL 25 MG CAPSULE PO SCH (22:19)
[2019-03-19] MEDS: METHOCARBAMOL 500 MG TABLET PO PRN (22:20)
[2019-03-19] MEDS: NICOTINE POLACRILEX 4 MG GUM BUC PRN (22:21)
[2019-03-20] MEDS: VITAMINS A AND D TOPICAL OINTMENT 60 GM TUBE TP SCH ×5 (00:39→23:07)
[2019-03-20] MEDS: chlordiazePOXIDE HCL 25 MG CAPSULE PO SCH ×2 (05:36→12:02)
[2019-03-20] MEDS: hydrOXYzine PAMOATE 25 MG CAPSULE (FP) PO PRN ×3 (05:36→22:22)
[2019-03-20] MEDS: METHOCARBAMOL 500 MG TABLET PO PRN ×3 (05:36→22:22)
[2019-03-20] MEDS: NICOTINE POLACRILEX 4 MG GUM BUC PRN ×3 (05:38→22:25)
[2019-03-20] MEDS: TRIAMCINOLONE ACET 0.025% OINTMENT 15 GM TUBE TP SCH ×3 (05:44→22:26)
[2019-03-20] MEDS ORDERED: METHADONE HCL 10 MG TABLET ONE (08:44)
[2019-03-20] MEDS ORDERED: METHADONE HCL 40 MG DISPERSABLE TABLET ONE (08:45)
[2019-03-20] MEDS ORDERED: METHADONE 80 MG, METHADONE 10 MG PO ONE (10:00)
[2019-03-20] MEDS ORDERED: METHADONE HCL 10 MG TABLET PO ONE (10:00)
--- NOTE | 2019-03-20 10:18 | PN ---
[facility] CIWA - CIWA Score Nausea/Vomitin-Mild Nausea/No Vomiting Muscle Tremors: 3 Anxiety: 1-Mildly Anxious Agitation: 2 Paroxysmal Sweats: 1-Minimal Palms Moist Orientation: 1-Uncertain about Date Tacttile Disturbances: 1-Very Mild Itch/Numbness Auditory Disturbances: 0-None Visual Disturbances: 0-None Headache: 0-None Present CIWA-Ar Total Score: 10 BHS Progress Note (SOAP) Subjective: long history of eczema itchy dry skin continue triamicinolone methadone 90 mg po daily Objective: 03/20/19 10:18 Vital Signs Temperature 97.2 F L 03/20/19 09:12 Pulse Rate 66 03/20/19 09:12 Respiratory Rate 18 03/20/19 09:12 Blood Pressure 93/48 L 03/20/19 09:12 O2 Sat by Pulse Oximetry (%) Laboratory Last Values WBC 5.2 K/mm3 (4.0-10.0) 03/19/19 13:30 RBC 4.53 M/mm3 (4.00-5.60) 03/19/19 13:30 Hgb 12.6 GM/dL (11.7-16.9) 03/19/19 13:30 Hct 38.1 % (35.4-49) 03/19/19 13:30 MCV 84.1 fl (80-96) 03/19/19 13:30 MCH 27.7 pg (25.7-33.7) 03/19/19 13:30 MCHC 32.9 g/dl (32.0-35.9) 03/19/19 13:30 RDW 14.3 % (11.9-15.9) 03/19/19 13:30 Plt Count 209 K/MM3 (134-434) 03/19/19 13:30 MPV 9.0 fl (7.5-11.1) 03/19/19 13:30 Sodium 139 mmol/L (136-145) 03/19/19 13:30 Potassium 4.0 mmol/L (3.5-5.1) 03/19/19 13:30 Chloride 104 mmol/L (98-107) 03/19/19 13:30 Carbon Dioxide 29 mmol/L (21-32) 03/19/19 13:30 Anion Gap 5 MMOL/L (8-16) L 03/19/19 13:30 BUN 8 mg/dL (7-18) 03/19/19 13:30 Creatinine 0.8 mg/dL (0.55-1.3) 03/19/19 13:30 Est GFR (CKD-EPI)AfAm 133.20 03/19/19 13:30 Est GFR (CKD-EPI)NonAf 114.93 03/19/19 13:30 Random Glucose 91 mg/dL (74-106) 03/19/19 13:30 Calcium 9.1 mg/dL (8.5-10.1) 03/19/19 13:30 Total Bilirubin 0.7 mg/dL (0.2-1) 03/19/19 13:30 AST 42 U/L (15-37) H 03/19/19 13:30 ALT 40 U/L (13-61) 03/19/19 13:30 Alkaline Phosphatase 106 U/L (45-117) 03/19/19 13:30 Total Protein 7.6 g/dl (6.4-8.2) 03/19/19 13:30 Albumin 3.9 g/dl (3.4-5.0) 03/19/19 13:30 Urine Color Yellow 03/19/19 15:00 Urine Appearance Clear 03/19/19 15:00 Urine pH 6.0 (5.0-8.0) 03/19/19 15:00 Ur Specific [place] 1.006 (1.010-1.035) L 03/19/19 15:00 Urine Protein Negative (NEGATIVE) 03/19/19 15:00 Urine Glucose (UA) Negative (NEGATIVE) 03/19/19 15:00 Urine Ketones Negative (NEGATIVE) 03/19/19 15:00 Urine Blood Negative (NEGATIVE) 03/19/19 15:00 Urine Nitrite Negative (NEGATIVE) 03/19/19 15:00 Urine Bilirubin Negative (NEGATIVE) 03/19/19 15:00 Urine Urobilinogen 1.0 mg/dL (0.2-1.0) 03/19/19 15:00 Ur Leukocyte Esterase Negative (NEGATIVE) 03/19/19 15:00 RPR Titer Nonreactive (NONREACTIVE) 03/19/19 13:30 HIV 1&2 Antibody Screen Negative 03/19/19 13:30 HIV P24 Antigen Negative 03/19/19 13:30 lab noted Assessment: 03/20/19 10:19 alcohol withdrawal sx eczema Plan: continue detox
[2019-03-20] MEDS: PRENATAL VITAMINS W/ FOLIC ACID TABLET (FP) PO SCH (10:44)
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
[2019-03-20] MEDS: THIAMINE HCL 100 MG TABLET (FP) PO SCH (22:22)
[2019-03-20] MEDS: chlordiazePOXIDE 5 MG CAPSULE PO SCH (22:22)
[2019-03-20] MEDS ORDERED: traZODone HCL 50 MG TABLET (FP) PO ONE (23:15)
[2019-03-21] MEDS ORDERED: METHADONE HCL 40 MG DISPERSABLE TABLET ONE (04:25)
[2019-03-21] MEDS ORDERED: METHADONE HCL 10 MG TABLET ONE (04:25)
[2019-03-21] MEDS: METHADONE 80 MG, METHADONE 10 MG PO SCH (05:52)
[2019-03-21] MEDS: NICOTINE POLACRILEX 4 MG GUM BUC PRN ×3 (05:53→22:29)
[2019-03-21] MEDS: TRIAMCINOLONE ACET 0.025% OINTMENT 15 GM TUBE TP SCH ×3 (05:53→23:21)
[2019-03-21] MEDS: busPIRone HCL 10 MG TABLET (FP) PO SCH ×3 (05:53→22:29)
[2019-03-21] MEDS: chlordiazePOXIDE 5 MG CAPSULE PO SCH ×2 (05:53→13:57)
[2019-03-21] MEDS: GABAPENTIN 300 MG CAPSULE (FP) PO SCH ×3 (05:55→22:30)
[2019-03-21] MEDS ORDERED: METHADONE HCL 10 MG TABLET PO SCH (06:00)
[2019-03-21] MEDS: VITAMINS A AND D TOPICAL OINTMENT 60 GM TUBE TP SCH ×3 (06:50→17:30)
[2019-03-21] MEDS: SERTRALINE HCL 50 MG TABLET (FP) PO SCH (10:44)
[2019-03-21] MEDS: PRENATAL VITAMINS W/ FOLIC ACID TABLET (FP) PO SCH (10:44)
[2019-03-21] MEDS: METHOCARBAMOL 500 MG TABLET PO PRN (10:46)
[2019-03-21] MEDS: chlordiazePOXIDE HCL 10 MG CAPSULE PO PRN ×2 (10:46→15:35)
--- NOTE | 2019-03-21 14:37 | PN ---
[facility] CIWA - CIWA Score Nausea/Vomitin-No Nausea/No Vomiting Muscle Tremors: 2 Anxiety: 2 Agitation: 1-Slight > Activity Paroxysmal Sweats: 2 Orientation: 0-Oriented Tacttile Disturbances: 0-None Auditory Disturbances: 0-None Visual Disturbances: 1-Very Mild Sensitivity Headache: 0-None Present CIWA-Ar Total Score: 8 BHS Progress Note (SOAP) Subjective: Anxious, Tremors, Sweating. Patient Reports that current withdrawal symptoms are mild in severity at this time. Objective: PATIENT A & O X 3, OBSERVED AMBULATING ON UNIT UNASSISTED. IN NO ACUTE DISTRESS. 03/21/19 14:35 Laboratory Tests 03/19/19 03/19/19 03/19/19 13:30 13:30 13:30 WBC 5.2 RBC 4.53 Hgb 12.6 Hct 38.1 MCV 84.1 MCH 27.7 MCHC 32.9 RDW 14.3 Plt Count 209 MPV 9.0 Sodium 139 Potassium 4.0 Chloride 104 Carbon Dioxide 29 Anion Gap 5 L BUN 8 Creatinine 0.8 Est GFR (CKD-EPI)AfAm 133.20 Est GFR (CKD-EPI)NonAf 114.93 Random Glucose 91 Calcium 9.1 Total Bilirubin 0.7 AST 42 H ALT 40 Alkaline Phosphatase 106 Total Protein 7.6 Albumin 3.9 Urine Color Urine Appearance Urine pH Ur Specific [place] Urine Protein Urine Glucose (UA) Urine Ketones Urine Blood Urine Nitrite Urine Bilirubin Urine Urobilinogen Ur Leukocyte Esterase RPR Titer HIV 1&2 Antibody Screen Negative HIV P24 Antigen Negative 03/19/19 03/19/19 13:30 15:00 WBC RBC Hgb Hct MCV MCH MCHC RDW Plt Count MPV Sodium Potassium Chloride Carbon Dioxide Anion Gap BUN Creatinine Est GFR (CKD-EPI)AfAm Est GFR (CKD-EPI)NonAf Random Glucose Calcium Total Bilirubin AST ALT Alkaline Phosphatase Total Protein Albumin Urine Color Yellow Urine Appearance Clear Urine pH 6.0 Ur Specific [place] 1.006 L Urine Protein Negative Urine Glucose (UA) Negative Urine Ketones Negative Urine Blood Negative Urine Nitrite Negative Urine Bilirubin Negative Urine Urobilinogen 1.0 Ur Leukocyte Esterase Negative RPR Titer Nonreactive HIV 1&2 Antibody Screen HIV P24 Antigen LABS NOTED. Assessment: 03/21/19 14:36 COMPLETION OF DETOX REGIMEN. Plan: SINCE PATIENT REPORTS THAT CURRENT WITHDRAWAL / DETOX SYMPTOMS ARE MINIMAL IN DEGREE AND THAT HE FEELS WELL OVERALL, AT PATIENTS REQUEST, HE WAS GRANTED AN EARLY DISCHARGE FROM DETOX UNIT TODAY SO THAT HE MAY PROCEED ON TO [facility] ([facility]).
--- NOTE | 2019-03-21 14:40 | DS ---
[facility] Detox Discharge Summary Admission Date: 03/19/19 Discharge Date: 03/21/19 - History Present History: Alcohol Dependence, Opioid Dependence, MMTP Additional Comments: PATIENT REPORTS THAT CURRENT WITHDRAWAL / DETOX SYMPTOMS ARE MINIMAL IN DEGREE AND THAT HE FEELS WELL OVERALL AT TIME OF DISCHARGE FROM DETOX UNIT. PATIENT GOING ON TO [facility] ([place], [place]) FOR AFTERCARE. PATIENT WAS DISCHARGED FROM DETOX UNIT TO BE TAKEN OVER TO REHAB UNIT IN STABLE MEDICAL CONDITION. Pertinent Past History: Hep C, Eczema, Major Depressive Disorder, M.M.T.P., Bipolar II Disorder, P.T.S.D., Nicotine Dependence. - Physical Exam Results Vital Signs: Vital Signs Temperature 97.4 F L 03/21/19 13:51 Pulse Rate 95 H 03/21/19 13:51 Respiratory Rate 18 03/21/19 13:51 Blood Pressure 114/70 03/21/19 13:51 O2 Sat by Pulse Oximetry (%) Pertinent Admission Physical Exam Findings: WITHDRAWAL SYMPTOMS. Laboratory Tests 03/19/19 03/19/19 03/19/19 13:30 13:30 13:30 WBC 5.2 RBC 4.53 Hgb 12.6 Hct 38.1 MCV 84.1 MCH 27.7 MCHC 32.9 RDW 14.3 Plt Count 209 MPV 9.0 Sodium 139 Potassium 4.0 Chloride 104 Carbon Dioxide 29 Anion Gap 5 L BUN 8 Creatinine 0.8 Est GFR (CKD-EPI)AfAm 133.20 Est GFR (CKD-EPI)NonAf 114.93 Random Glucose 91 Calcium 9.1 Total Bilirubin 0.7 AST 42 H ALT 40 Alkaline Phosphatase 106 Total Protein 7.6 Albumin 3.9 Urine Color Urine Appearance Urine pH Ur Specific [place] Urine Protein Urine Glucose (UA) Urine Ketones Urine Blood Urine Nitrite Urine Bilirubin Urine Urobilinogen Ur Leukocyte Esterase RPR Titer HIV 1&2 Antibody Screen Negative HIV P24 Antigen Negative 03/19/19 03/19/19 13:30 15:00 WBC RBC Hgb Hct MCV MCH MCHC RDW Plt Count MPV Sodium Potassium Chloride Carbon Dioxide Anion Gap BUN Creatinine Est GFR (CKD-EPI)AfAm Est GFR (CKD-EPI)NonAf Random Glucose Calcium Total Bilirubin AST ALT Alkaline Phosphatase Total Protein Albumin Urine Color Yellow Urine Appearance Clear Urine pH 6.0 Ur Specific [place] 1.006 L Urine Protein Negative Urine Glucose (UA) Negative Urine Ketones Negative Urine Blood Negative Urine Nitrite Negative Urine Bilirubin Negative Urine Urobilinogen 1.0 Ur Leukocyte Esterase Negative RPR Titer Nonreactive HIV 1&2 Antibody Screen HIV P24 Antigen LABS NOTED. - Treatment Hospital Course: Detox Protocol Followed, Detoxed Safely, Responded well, Discharged Condition Good, Rehab Referral Accepted Patient has Accepted a Rehab Referral to: [facility] ([place], [place]). - Medication Discharge Medications: Ambulatory Orders Sertraline HCl [Zoloft -] 50 mg PO DAILY 01/19/16 Buspirone HCl [Buspar -] 10 mg PO TID #90 tablet 08/13/18 Gabapentin [Neurontin -] 300 mg PO TID #90 cap 08/13/18 Triamcinolone 0.025% Ointment [Aristocort 0.025% Ointment -] 1 applic TP TID - Diagnosis (1) Nicotine dependence Current Visit: Yes Status: Chronic Qualifiers: Nicotine product type: cigarettes Substance use status: uncomplicated Qualified Code(s): F17.210 - Nicotine dependence, cigarettes, uncomplicated (2) Alcohol dependence with uncomplicated withdrawal Current Visit: Yes Status: Acute (3) Eczema Current Visit: Yes Status: Chronic Qualifiers: Eczema type: intrinsic Qualified Code(s): L20.84 - Intrinsic (allergic) eczema (4) Methadone maintenance therapy patient Current Visit: Yes Status: Chronic (5) Substance induced mood disorder Current Visit: Yes Status: Acute (6) Substance-induced sleep disorder Current Visit: Yes Status: Acute (7) PTSD (post-traumatic stress disorder) Current Visit: No Status: Chronic (8) Bipolar II disorder Current Visit: No Status: Suspected (9) MDD (major depressive disorder) Current Visit: No Status: Ruled-out Qualifiers: Major depression recurrence: unspecified whether recurrent Active/ Remission status: remission status unspecified Qualified Code(s): F32.9 - Major depressive disorder, single episode, unspecified - AMA Did Patient Leave Against Medical Advice: No
[2019-03-21] MEDS ORDERED: chlordiazePOXIDE HCL 10 MG CAPSULE PO PRN (21:00)
[2019-03-21] MEDS ORDERED: traZODone HCL 50 MG TABLET (FP) PO SCH (22:00)
[2019-03-21] MEDS: chlordiazePOXIDE HCL 10 MG CAPSULE PO SCH (22:30)
[2019-03-22] MEDS: busPIRone HCL 10 MG TABLET (FP) PO SCH (05:39)
[2019-03-22] MEDS: GABAPENTIN 300 MG CAPSULE (FP) PO SCH (05:39)
[2019-03-22] MEDS: chlordiazePOXIDE HCL 10 MG CAPSULE PO SCH (05:40)
[2019-03-22] MEDS: TRIAMCINOLONE ACET 0.025% OINTMENT 15 GM TUBE TP SCH (05:41)
[2019-03-22] MEDS ORDERED: METHADONE HCL 10 MG TABLET ONE (05:42)
[2019-03-22] MEDS ORDERED: METHADONE HCL 40 MG DISPERSABLE TABLET ONE (05:43)
[2019-03-22] MEDS: METHADONE 80 MG, METHADONE 10 MG PO SCH (05:43)
[2019-03-22] MEDS: NICOTINE POLACRILEX 4 MG GUM BUC PRN ×2 (05:44→10:20)
[2019-03-22] MEDS: VITAMINS A AND D TOPICAL OINTMENT 60 GM TUBE TP SCH ×2 (07:18)
[2019-03-22] MEDS: SERTRALINE HCL 50 MG TABLET (FP) PO SCH (10:17)
[2019-03-22 11:10] VITALS: BP 114/60; PULSE 70; TEMP 97.6
== END 2019-03-22 11:26 | disposition other institution (70) | DRG 773 ==
LOC: YASAS 10:43 → Y3N 13:10
PROVIDERS: ADMIT Surgery; ATTEND Surgery
PROC: HZ2ZZZZ Detoxification Services for Substance Abuse Treatment (ICD-10-PCS; principal; 2019-03-19)
DX: F10.230 Alcohol dependence with withdrawal, uncomplicated (principal); F11.20 Opioid dependence, uncomplicated; F17.210 Nicotine dependence, cigarettes, uncomplicated; F19.24 Other psychoactive substance dependence with psychoactive substance-induced mood disorder; F19.282 Other psychoactive substance dependence with psychoactive substance-induced sleep disorder; F43.10 Post-traumatic stress disorder, unspecified; F31.81 Bipolar II disorder; F32.9 Major depressive disorder, single episode, unspecified; B18.2 Chronic viral hepatitis C; L20.84 Intrinsic (allergic) eczema
CPT/HCPCS: 36415; 80053; 81003; 85027; 86593; 87389

== ENCOUNTER 2019-03-22 09:21 | Inpatient (IN) | payer OTHER ==
--- NOTE | 2019-03-21 14:45 | HP ---
[facility] Rehab Assess/Revision - Admission History Admitted to Rehab from: [facility] Date of Admission to Rehab: 03/21/2019 - Vital signs Vital Signs: NOTED; STABLE. - Findings Detox History & Physical reviewed: Yes Concur with findings: Yes Comments/Additional Findings: PATIENT'S MEDICAL / MEDICATION HISTORY REVIEWED PRIOR TO DISCHARGE FROM DETOX UNIT. PATIENT WAS DISCHARGED FROM DETOX UNIT TO BE TAKEN OVER TO REHAB UNIT IN STABLE MEDICAL CONDITION. Inpatient Rehab Admission - Rehab Decision to Admit Inpatient rehab admission?: Yes - Initial Determination Are CD services needed?: Yes Free of communicable disease: Yes Not in need of hospitalization: Yes - Rehab Admission Criteria Previous failed treatment: Yes Poor recovery environment: Yes Comorbidities: Yes Lacks judgement: Yes Patient is meeting Inpatient Rehab admission criteria:: Yes
[~2019-03-22 09:21] MED LIST: ACETAMINOPHEN 325 MG TABLET (FP) PO PRN; IBUPROFEN 400 MG TABLET (FP) PO PRN; LOPERAMIDE HCL 2 MG CAPSULE PO PRN; MAG HYDROX/AL HYDROX/SIMETH 30 ML UNIT-DOSE CUP PO PRN; MAGNESIUM CITRATE 300 ML BOTTLE PO PRN; MAGNESIUM HYDROX 2400MG/30ML ORAL SUSPENSION 30 ML CUP PO PRN; MENTHOL/PHENOL 1 EACH UD MM PRN; P-EPHED 60MG/TRIPROLIDI 2.5MG TABLET PO PRN; TRIAMCINOLONE ACET 0.025% OINTMENT 15 GM TUBE TP SCH; guaiFENesin 200 MG/10 ML 10 ML UNIT-DOSE CUPS PO PRN
[2019-03-22] MEDS: VITAMINS A AND D TOPICAL OINTMENT 60 GM TUBE TP SCH ×3 (17:36→21:29)
[2019-03-22] MEDS: PRENATAL VITAMINS W/ FOLIC ACID TABLET (FP) PO SCH (17:37)
[2019-03-22] MEDS: THIAMINE HCL 100 MG TABLET (FP) PO SCH ×2 (17:37→21:30)
[2019-03-22] MEDS: TRIAMCINOLONE ACET 0.5% CREAM 15 GM TUBE TP SCH (21:27)
[2019-03-22] MEDS: hydrOXYzine PAMOATE 50 MG CAPSULE (FP) PO PRN (21:28)
[2019-03-22] MEDS: MELATONIN 5 MG TABLETS PO PRN (21:28)
[2019-03-23] MEDS ORDERED: METHADONE HCL 40 MG DISPERSABLE TABLET ONE (05:21)
[2019-03-23] MEDS ORDERED: METHADONE HCL 10 MG TABLET ONE (05:21)
[2019-03-23] MEDS ORDERED: METHADONE HCL 10 MG TABLET PO SCH (06:00)
[2019-03-23] MEDS: METHADONE 80 MG, METHADONE 10 MG PO SCH (06:23)
[2019-03-23] MEDS: NICOTINE POLACRILEX 4 MG GUM BUC PRN ×2 (06:24→13:13)
[2019-03-23] MEDS: PRENATAL VITAMINS W/ FOLIC ACID TABLET (FP) PO SCH (10:27)
[2019-03-23] MEDS: TRIAMCINOLONE ACET 0.5% CREAM 15 GM TUBE TP SCH ×2 (10:28→21:01)
[2019-03-23] MEDS: VITAMINS A AND D TOPICAL OINTMENT 60 GM TUBE TP SCH ×2 (10:29→22:19)
[2019-03-23] MEDS: hydrOXYzine PAMOATE 50 MG CAPSULE (FP) PO PRN (10:32)
--- NOTE | 2019-03-23 11:56 | PN ---
[facility] Progress Note Note: telephone call regarding abive named patient Informed by the nurse that the patient was transferred from [facility] to [facility] and is in need of medication renewal Medication treatment reviewed from record Zoloft 50 mg po daily Buspar 10 mg po tid Gabapentin 300 mg po tid Trzodone 50 mg po q hs
--- NOTE | 2019-03-23 12:09 | PN ---
[facility] Progress Note Note: patient needs dietary admission order
[2019-03-23] MEDS: GABAPENTIN 100 MG CAPSULE (FP) PO SCH ×2 (13:12→21:01)
[2019-03-23] MEDS: busPIRone HCL 10 MG TABLET (FP) PO SCH ×2 (14:50→21:01)
[2019-03-23] MEDS: THIAMINE HCL 100 MG TABLET (FP) PO SCH (21:01)
[2019-03-23] MEDS: traZODone HCL 50 MG TABLET (FP) PO SCH (21:01)
[2019-03-24] MEDS ORDERED: METHADONE HCL 40 MG DISPERSABLE TABLET ONE (02:56)
[2019-03-24] MEDS ORDERED: METHADONE HCL 10 MG TABLET ONE (02:56)
[2019-03-24] MEDS: NICOTINE POLACRILEX 4 MG GUM BUC PRN ×4 (06:03→21:20)
[2019-03-24] MEDS: busPIRone HCL 10 MG TABLET (FP) PO SCH ×3 (06:03→21:19)
[2019-03-24] MEDS: GABAPENTIN 100 MG CAPSULE (FP) PO SCH ×3 (06:03→21:18)
[2019-03-24] MEDS: METHADONE 80 MG, METHADONE 10 MG PO SCH (06:03)
[2019-03-24] MEDS: SERTRALINE HCL 50 MG TABLET (FP) PO SCH (10:06)
[2019-03-24] MEDS: PRENATAL VITAMINS W/ FOLIC ACID TABLET (FP) PO SCH (10:06)
[2019-03-24] MEDS: TRIAMCINOLONE ACET 0.5% CREAM 15 GM TUBE TP SCH ×2 (10:06→21:19)
[2019-03-24] MEDS: VITAMINS A AND D TOPICAL OINTMENT 60 GM TUBE TP SCH ×2 (10:06→22:05)
[2019-03-24] MEDS: hydrOXYzine PAMOATE 50 MG CAPSULE (FP) PO PRN ×2 (10:08→21:18)
[2019-03-24] MEDS: THIAMINE HCL 100 MG TABLET (FP) PO SCH (21:18)
[2019-03-24] MEDS: traZODone HCL 50 MG TABLET (FP) PO SCH (21:19)
[2019-03-24] MEDS: MELATONIN 5 MG TABLETS PO PRN (21:19)
[2019-03-25] MEDS ORDERED: METHADONE HCL 40 MG DISPERSABLE TABLET ONE (03:13)
[2019-03-25] MEDS ORDERED: METHADONE HCL 10 MG TABLET ONE (03:13)
[2019-03-25] MEDS: NICOTINE POLACRILEX 4 MG GUM BUC PRN ×3 (06:09→21:35)
[2019-03-25] MEDS: METHADONE 80 MG, METHADONE 10 MG PO SCH (06:09)
[2019-03-25] MEDS: busPIRone HCL 10 MG TABLET (FP) PO SCH ×3 (06:09→21:33)
[2019-03-25] MEDS: GABAPENTIN 100 MG CAPSULE (FP) PO SCH ×3 (06:10→21:33)
[2019-03-25] MEDS: SERTRALINE HCL 50 MG TABLET (FP) PO SCH (10:10)
[2019-03-25] MEDS: PRENATAL VITAMINS W/ FOLIC ACID TABLET (FP) PO SCH (10:10)
[2019-03-25] MEDS: hydrOXYzine PAMOATE 50 MG CAPSULE (FP) PO PRN ×2 (10:11→21:33)
[2019-03-25] MEDS: TRIAMCINOLONE ACET 0.5% CREAM 15 GM TUBE TP SCH ×2 (10:13→21:33)
[2019-03-25] MEDS: VITAMINS A AND D TOPICAL OINTMENT 60 GM TUBE TP SCH ×2 (10:14→21:34)
[2019-03-25] MEDS: THIAMINE HCL 100 MG TABLET (FP) PO SCH (21:32)
[2019-03-25] MEDS: traZODone HCL 50 MG TABLET (FP) PO SCH (21:33)
[2019-03-25] MEDS: MELATONIN 5 MG TABLETS PO PRN (21:33)
[2019-03-26] MEDS ORDERED: METHADONE HCL 40 MG DISPERSABLE TABLET ONE (04:56)
[2019-03-26] MEDS ORDERED: METHADONE HCL 10 MG TABLET ONE (04:56)
[2019-03-26] MEDS: GABAPENTIN 100 MG CAPSULE (FP) PO SCH ×3 (05:50→21:12)
[2019-03-26] MEDS: METHADONE 80 MG, METHADONE 10 MG PO SCH (05:50)
[2019-03-26] MEDS: busPIRone HCL 10 MG TABLET (FP) PO SCH ×3 (05:50→21:12)
[2019-03-26] MEDS: NICOTINE POLACRILEX 4 MG GUM BUC PRN ×3 (05:51→19:19)
[2019-03-26] MEDS: hydrOXYzine PAMOATE 50 MG CAPSULE (FP) PO PRN ×4 (05:51→21:13)
[2019-03-26] MEDS: PRENATAL VITAMINS W/ FOLIC ACID TABLET (FP) PO SCH (09:49)
[2019-03-26] MEDS: SERTRALINE HCL 50 MG TABLET (FP) PO SCH (09:49)
[2019-03-26] MEDS: VITAMINS A AND D TOPICAL OINTMENT 60 GM TUBE TP SCH ×2 (09:50→21:43)
[2019-03-26] MEDS: TRIAMCINOLONE ACET 0.5% CREAM 15 GM TUBE TP SCH ×2 (09:51→21:13)
[2019-03-26] MEDS ORDERED: PT OWN MED DRAWER 7, Y5N ONE (09:52)
[2019-03-26] MEDS: MELATONIN 5 MG TABLETS PO PRN (21:12)
[2019-03-26] MEDS: THIAMINE HCL 100 MG TABLET (FP) PO SCH (21:12)
[2019-03-26] MEDS: traZODone HCL 50 MG TABLET (FP) PO SCH (21:13)
[2019-03-27] MEDS ORDERED: METHADONE HCL 10 MG TABLET ONE (04:41)
[2019-03-27] MEDS ORDERED: PT OWN MED DRAWER 7, Y5N ONE ×5 (04:42→20:55)
[2019-03-27] MEDS ORDERED: METHADONE HCL 40 MG DISPERSABLE TABLET ONE (04:42)
[2019-03-27] MEDS: METHADONE 80 MG, METHADONE 10 MG PO SCH (05:42)
[2019-03-27] MEDS: GABAPENTIN 100 MG CAPSULE (FP) PO SCH ×3 (05:42→21:52)
[2019-03-27] MEDS: busPIRone HCL 10 MG TABLET (FP) PO SCH ×3 (05:43→21:52)
[2019-03-27] MEDS: NICOTINE POLACRILEX 4 MG GUM BUC PRN ×3 (05:45→14:13)
[2019-03-27] MEDS: hydrOXYzine PAMOATE 50 MG CAPSULE (FP) PO PRN ×2 (05:45→14:12)
[2019-03-27] MEDS: SERTRALINE HCL 50 MG TABLET (FP) PO SCH (09:35)
[2019-03-27] MEDS: PRENATAL VITAMINS W/ FOLIC ACID TABLET (FP) PO SCH (09:35)
[2019-03-27] MEDS: VITAMINS A AND D TOPICAL OINTMENT 60 GM TUBE TP SCH ×2 (09:37→21:52)
[2019-03-27] MEDS: TRIAMCINOLONE ACET 0.5% CREAM 15 GM TUBE TP SCH (09:37)
[2019-03-27] MEDS: THIAMINE HCL 100 MG TABLET (FP) PO SCH (21:52)
[2019-03-27] MEDS: traZODone HCL 50 MG TABLET (FP) PO SCH (21:52)
[2019-03-28] MEDS ORDERED: METHADONE HCL 10 MG TABLET ONE (04:01)
[2019-03-28] MEDS ORDERED: METHADONE HCL 40 MG DISPERSABLE TABLET ONE (04:01)
[2019-03-28] MEDS: GABAPENTIN 100 MG CAPSULE (FP) PO SCH ×3 (05:58→21:20)
[2019-03-28] MEDS: METHADONE 80 MG, METHADONE 10 MG PO SCH (05:58)
[2019-03-28] MEDS: busPIRone HCL 10 MG TABLET (FP) PO SCH ×3 (05:59→21:19)
[2019-03-28] MEDS: SERTRALINE HCL 50 MG TABLET (FP) PO SCH (10:24)
[2019-03-28] MEDS: PRENATAL VITAMINS W/ FOLIC ACID TABLET (FP) PO SCH (10:24)
[2019-03-28] MEDS: VITAMINS A AND D TOPICAL OINTMENT 60 GM TUBE TP SCH ×2 (10:24→21:44)
[2019-03-28] MEDS: hydrOXYzine PAMOATE 50 MG CAPSULE (FP) PO PRN ×2 (10:25→21:20)
[2019-03-28] MEDS: NICOTINE POLACRILEX 4 MG GUM BUC PRN ×2 (13:57→21:21)
[2019-03-28] MEDS: THIAMINE HCL 100 MG TABLET (FP) PO SCH (21:19)
[2019-03-28] MEDS: traZODone HCL 50 MG TABLET (FP) PO SCH (21:20)
[2019-03-28] MEDS: MELATONIN 5 MG TABLETS PO PRN (21:20)
[2019-03-29] MEDS ORDERED: METHADONE HCL 10 MG TABLET ONE (05:31)
[2019-03-29] MEDS ORDERED: METHADONE HCL 40 MG DISPERSABLE TABLET ONE (05:31)
[2019-03-29] MEDS: busPIRone HCL 10 MG TABLET (FP) PO SCH ×3 (05:48→21:33)
[2019-03-29] MEDS: METHADONE 80 MG, METHADONE 10 MG PO SCH (05:48)
[2019-03-29] MEDS: GABAPENTIN 100 MG CAPSULE (FP) PO SCH ×3 (05:48→21:33)
[2019-03-29] MEDS: NICOTINE POLACRILEX 4 MG GUM BUC PRN ×5 (05:49→21:33)
[2019-03-29] MEDS: hydrOXYzine PAMOATE 50 MG CAPSULE (FP) PO PRN ×2 (10:31→21:33)
[2019-03-29] MEDS: PRENATAL VITAMINS W/ FOLIC ACID TABLET (FP) PO SCH (10:31)
[2019-03-29] MEDS: VITAMINS A AND D TOPICAL OINTMENT 60 GM TUBE TP SCH (10:32)
[2019-03-29] MEDS: SERTRALINE HCL 50 MG TABLET (FP) PO SCH (10:32)
[2019-03-29] MEDS: traZODone HCL 50 MG TABLET (FP) PO SCH (21:33)
[2019-03-29] MEDS: THIAMINE HCL 100 MG TABLET (FP) PO SCH (21:33)
[2019-03-30] MEDS: VITAMINS A AND D TOPICAL OINTMENT 60 GM TUBE TP SCH ×3 (00:10→22:23)
[2019-03-30] MEDS ORDERED: METHADONE HCL 40 MG DISPERSABLE TABLET ONE (03:24)
[2019-03-30] MEDS ORDERED: METHADONE HCL 10 MG TABLET ONE (03:24)
[2019-03-30] MEDS: busPIRone HCL 10 MG TABLET (FP) PO SCH ×3 (06:09→21:25)
[2019-03-30] MEDS: METHADONE 80 MG, METHADONE 10 MG PO SCH (06:09)
[2019-03-30] MEDS: GABAPENTIN 100 MG CAPSULE (FP) PO SCH ×3 (06:09→21:26)
[2019-03-30] MEDS: NICOTINE POLACRILEX 4 MG GUM BUC PRN ×3 (06:10→13:57)
[2019-03-30] MEDS ORDERED: PT OWN MED DRAWER 7, Y5N ONE (08:35)
[2019-03-30] MEDS: SERTRALINE HCL 50 MG TABLET (FP) PO SCH (09:23)
[2019-03-30] MEDS: PRENATAL VITAMINS W/ FOLIC ACID TABLET (FP) PO SCH (09:23)
[2019-03-30] MEDS: hydrOXYzine PAMOATE 50 MG CAPSULE (FP) PO PRN ×2 (09:24→21:26)
[2019-03-30] MEDS: traZODone HCL 50 MG TABLET (FP) PO SCH (21:25)
[2019-03-30] MEDS: MELATONIN 5 MG TABLETS PO PRN (21:27)
[2019-03-30] MEDS: THIAMINE HCL 100 MG TABLET (FP) PO SCH (21:27)
[2019-03-31] MEDS ORDERED: METHADONE HCL 40 MG DISPERSABLE TABLET ONE (04:01)
[2019-03-31] MEDS ORDERED: METHADONE HCL 10 MG TABLET ONE (04:01)
[2019-03-31] MEDS: GABAPENTIN 100 MG CAPSULE (FP) PO SCH ×3 (06:00→21:34)
[2019-03-31] MEDS: busPIRone HCL 10 MG TABLET (FP) PO SCH ×3 (06:00→21:36)
[2019-03-31] MEDS: METHADONE 80 MG, METHADONE 10 MG PO SCH (06:00)
[2019-03-31] MEDS: NICOTINE POLACRILEX 4 MG GUM BUC PRN ×4 (06:02→21:35)
[2019-03-31] MEDS: PRENATAL VITAMINS W/ FOLIC ACID TABLET (FP) PO SCH (10:14)
[2019-03-31] MEDS: SERTRALINE HCL 50 MG TABLET (FP) PO SCH (10:14)
[2019-03-31] MEDS: hydrOXYzine PAMOATE 50 MG CAPSULE (FP) PO PRN ×2 (10:15→21:34)
[2019-03-31] MEDS ORDERED: PT OWN MED DRAWER 7, Y5N ONE (10:17)
[2019-03-31] MEDS: VITAMINS A AND D TOPICAL OINTMENT 60 GM TUBE TP SCH ×2 (10:17→21:36)
[2019-03-31] MEDS: THIAMINE HCL 100 MG TABLET (FP) PO SCH (21:34)
[2019-03-31] MEDS: traZODone HCL 50 MG TABLET (FP) PO SCH (21:34)
[2019-04-01] MEDS ORDERED: METHADONE HCL 10 MG TABLET ONE (04:09)
[2019-04-01] MEDS ORDERED: METHADONE HCL 40 MG DISPERSABLE TABLET ONE (04:09)
[2019-04-01] MEDS: METHADONE 80 MG, METHADONE 10 MG PO SCH (06:33)
[2019-04-01] MEDS: GABAPENTIN 100 MG CAPSULE (FP) PO SCH ×3 (06:34→21:35)
[2019-04-01] MEDS: busPIRone HCL 10 MG TABLET (FP) PO SCH ×3 (06:34→22:17)
[2019-04-01] MEDS: NICOTINE POLACRILEX 4 MG GUM BUC PRN ×3 (06:35→21:36)
[2019-04-01] MEDS: SERTRALINE HCL 50 MG TABLET (FP) PO SCH (09:56)
[2019-04-01] MEDS: PRENATAL VITAMINS W/ FOLIC ACID TABLET (FP) PO SCH (09:57)
[2019-04-01] MEDS: VITAMINS A AND D TOPICAL OINTMENT 60 GM TUBE TP SCH ×2 (09:57→21:36)
[2019-04-01] MEDS: hydrOXYzine PAMOATE 50 MG CAPSULE (FP) PO PRN ×2 (09:57→21:35)
[2019-04-01] MEDS: traZODone HCL 50 MG TABLET (FP) PO SCH (21:35)
[2019-04-01] MEDS: MELATONIN 5 MG TABLETS PO PRN (21:35)
[2019-04-01] MEDS: THIAMINE HCL 100 MG TABLET (FP) PO SCH (21:36)
[2019-04-02] MEDS ORDERED: METHADONE HCL 10 MG TABLET ONE (05:13)
[2019-04-02] MEDS ORDERED: METHADONE HCL 40 MG DISPERSABLE TABLET ONE (05:13)
[2019-04-02] MEDS: busPIRone HCL 10 MG TABLET (FP) PO SCH ×3 (05:55→21:33)
[2019-04-02] MEDS: GABAPENTIN 100 MG CAPSULE (FP) PO SCH ×3 (05:55→21:33)
[2019-04-02] MEDS: METHADONE 80 MG, METHADONE 10 MG PO SCH (05:55)
[2019-04-02] MEDS: NICOTINE POLACRILEX 4 MG GUM BUC PRN ×4 (05:56→21:34)
[2019-04-02] MEDS: PRENATAL VITAMINS W/ FOLIC ACID TABLET (FP) PO SCH (09:37)
[2019-04-02] MEDS: SERTRALINE HCL 50 MG TABLET (FP) PO SCH (09:37)
[2019-04-02] MEDS: hydrOXYzine PAMOATE 50 MG CAPSULE (FP) PO PRN ×2 (09:38→21:33)
[2019-04-02] MEDS: VITAMINS A AND D TOPICAL OINTMENT 60 GM TUBE TP SCH ×2 (10:39→21:34)
--- NOTE | 2019-04-02 10:39 | PN ---
[facility] Progress Note (SOAP) Subjective: Patient to be discharged tomorrow. Objective: A+O x3, no neurological deficits. Heart sounds regular, lungs clear, Abd soft, non-tender, non-distended, medically stable. 04/02/19 10:38 Vital Signs (72 hours) 03/31/19 04/01/19 04/01/19 07:32 00:30 03:30 Temperature 98.4 F Pulse Rate 56 L Respiratory 18 18 18 Rate Blood Pressure 113/65 04/01/19 04/02/19 04/02/19 06:51 00:30 03:30 Temperature 96.7 F L Pulse Rate 54 L Respiratory 18 18 18 Rate Blood Pressure 114/67 04/02/19 07:12 Temperature 97.9 F Pulse Rate 59 L Respiratory 18 Rate Blood Pressure 109/60 04/02/19 10:40 Assessment: Medically stable for discharge. Discharge Dx: Cocaine Dependence, chronic ETOH dependence, chronic MMTP Eczema 04/02/19 10:41 Plan: Patient will go to [facility] for aftercare and medical care. Does not need any prescriptions transmitted at this time.
[2019-04-02] MEDS ORDERED: PT OWN MED DRAWER 7, Y5N ONE ×2 (11:39→14:06)
[2019-04-02] MEDS: MELATONIN 5 MG TABLETS PO PRN (21:33)
[2019-04-02] MEDS: traZODone HCL 50 MG TABLET (FP) PO SCH (21:33)
[2019-04-02] MEDS: THIAMINE HCL 100 MG TABLET (FP) PO SCH (21:33)
[2019-04-03] MEDS: busPIRone HCL 10 MG TABLET (FP) PO SCH (06:17)
[2019-04-03] MEDS: GABAPENTIN 100 MG CAPSULE (FP) PO SCH (06:18)
[2019-04-03] MEDS: hydrOXYzine PAMOATE 50 MG CAPSULE (FP) PO PRN (06:19)
[2019-04-03] MEDS: NICOTINE POLACRILEX 4 MG GUM BUC PRN ×2 (06:20→08:54)
[2019-04-03] MEDS: METHADONE 80 MG, METHADONE 10 MG PO SCH (06:20)
[2019-04-03 07:10] VITALS: BP 124/73; PULSE 61; TEMP 97.8
== END 2019-04-03 09:10 | disposition home or self-care (01) | DRG 772 ==
LOC: YASAS 09:21 → Y3W 09:23
PROVIDERS: ADMIT Neuromusculoskeletal Medicine & OMM; ATTEND Neuromusculoskeletal Medicine & OMM
PROC: HZ42ZZZ Group Counseling for Substance Abuse Treatment, Cognitive-Behavioral (ICD-10-PCS; principal; 2019-03-22)
DX: F10.20 Alcohol dependence, uncomplicated (principal); F14.20 Cocaine dependence, uncomplicated; F11.20 Opioid dependence, uncomplicated; L30.9 Dermatitis, unspecified